=== PATIENT | male | born 1960 | race Caucasian/White ===

== ENCOUNTER → 2016-12-05 | Outpatient (CLI) | payer OTHER | END | disposition home or self-care (01) | LOC: LABPAT 15:37 | PROVIDERS: ATTEND Orthopaedic Surgery | DX: Z01.812 Encounter for preprocedural laboratory examination (principal) | CPT/HCPCS: 87070 ==

== ENCOUNTER 2016-12-25 05:57 | Inpatient (IN) | payer OTHER ==
[2016-12-24 10:01] VITALS: BMI 49.4
[~2016-12-25 05:57] MED LIST: ACETAMINOPHEN TAB 500 MG TAB PO ONE; FAMOTIDINE 20 MG/2 ML VIAL IV PRN; HYDROmorphone 1 MG/ML 1 ML SYRINGE IVP PRN; LIDOCAINE 1% 20 ML VIAL (10MG/ML) FOR IV START INTRADERMA PRN; MELOXICAM 7.5 MG TAB PO ONE; MIDAZOLAM 2 MG/2 ML VIAL IV PRN; ONDANSETRON 4 MG/2 ML VIAL IVP ONE; TRANEXAMIC ACID 1,000 MG in SODIUM CHLORIDE 0.9% 100 ML IVPB ONE; ceFAZolin 3 GM in SODIUM CHLORIDE 0.9% 100 ML IVPB ONE
[2016-12-25 06:49] LABS: Glucose,Whole Blood 259 mg/dL (75-99)
[2016-12-25] MEDS: LACTATED RINGERS 1,000 ML IV SCH ×2 (07:02→23:22)
[2016-12-25] MEDS ORDERED: TRANEXAMIC ACID 1,000 MG/10 ML VIAL ONE (07:12)
[2016-12-25] MEDS ORDERED: LABETALOL 5 MG/ML VIAL MDV ONE (07:12)
[2016-12-25] MEDS ORDERED: SODIUM CHLORIDE 0.9% IRRIG 1,000 ML BTL IRRIGATION ONE (07:12)
[2016-12-25] MEDS ORDERED: diphenhydrAMINE 50 MG/ML 1 ML VIAL ONE (07:12)
[2016-12-25] MEDS ORDERED: hydrALAZINE HCL 20 MG/ML 1 ML VIAL ONE (07:12)
[2016-12-25] MEDS ORDERED: MIDAZOLAM 2 MG/2 ML VIAL ONE (07:12)
[2016-12-25] MEDS ORDERED: KETAMINE 10 MG/ML 20 ML VIAL ONE (07:12)
[2016-12-25] MEDS ORDERED: GLYCOPYRROLATE 0.2 MG/ML 2 ML VIAL ONE (07:12)
[2016-12-25] MEDS ORDERED: HEPARIN SODIUM,PORCINE 10,000 UNIT/ML 1 ML VIAL ONE (07:12)
[2016-12-25] MEDS ORDERED: SODIUM CHLORIDE 0.9% 100 ML BAG ONE (07:12)
[2016-12-25] MEDS ORDERED: ceFAZolin 3,000 MG in SODIUM CHLORIDE 0.9% IRRIGATIO 3,000 ML IRRIGATION ONE (07:45)
[2016-12-25] MEDS: ROPIVACAINE 246.25 MG, EPINEPHrine 0.5 MG, KETOROLAC 30 MG, cloNIDine HCL/PF 80 MCG, WA... MISCELLANE ONE ×10 (07:45→08:50)
[2016-12-25 09:09] LABS: Glucose,Whole Blood 252 mg/dL (75-99)
[2016-12-25] MEDS ORDERED: LACTATED RINGERS 1,000 ML IV ONE (09:15)
--- NOTE | 2016-12-25 09:35 | P.OP ---
Date of Procedure: 12/25/16 Preoperative Diagnosis: Severe osteoarthritis left hip Postoperative Diagnosis: Severe osteoarthritis left hip Procedure(s) Performed: Left total hip arthroplasty with a direct anterior approach Implants: Bernard and nephew Polarstem size 8 Lateral Bernard & Nephew R3, 3 hole acetabular shell, 60 mm Bernard [employer] Nephew reflection 6.5 mm cancellus screw, 20 mm 2 Bernard [employer] Nephew R3, XLPE 20 acetabular liner Bernard & Nephew Oxinium femoral head 36 m, +4 All components were press-fit. The articulation is ceramic on polyethylene. Anesthesia: spinal Surgeon: Steve Mon Chair Spring Assembler #1: Tati Banuelos Chair Spring Assembler #2: Deb Mann Estimated Blood Loss (ml): 800 (330 returned with Cell Saver) Pathology: other (Femoral head) Condition: stable Disposition: PACU Indications for Procedure: After failure of conservative treatment we discussed the surgical and nonsurgical treatment options at length. Patient wishes to proceed with a total hip arthroplasty with a direct anterior approach. Complications specific to this procedure were discussed at length, including but not limited to infection, leg length discrepancy, dislocation, and nerve injury. Patient is aware of all these complications and informed consent was obtained. Also, it was discussed at length prior to the procedure with the patient and his family that due to his large size he is at increased risk of a dislocation after surgery. They are aware of this as well. Operative Findings: The operative findings are consistent with severe osteoarthritis of the left hip. Description of Procedure: Patient was seen and evaluated in the preoperative area, consent was reviewed, and the surgical site was marked with a skin marker. Patient was then brought to the operating room and given prophylactic antibiotics intravenously. 1 g of Tranexamic acid was also given. A spinal anesthetic was administered by the anesthesia department. The patient was then placed on the [place] table with the bony prominences well-padded. The hip area was then prepped and draped in usual sterile fashion. A universal timeout was then performed, which confirmed the patient's name, surgical site, ALLERGIES, and procedure being performed. Next the incision site was located at 1 cm distal and 1 cm lateral to the anterior superior iliac spine. The skin and subcutaneous tissues were sharply incised. Incision was carefully dissected down to the fascia overlying the tensor fascia chey muscle. This fascia was then incised in line with the incision. Next, using blunt finger dissection, the tensor fascia chey muscle was dissected off its investing fascia. The muscle was then carefully retracted laterally with a cobra retractor over the lateral neck of the femur. Next, the circumflex vessels were identified and cauterized using the AquaMantis device. The anterior hip capsule was then exposed. The capsule was then opened and an inverted T fashion. Retention sutures were placed in the inferior arms of the capsule. Cobra retractors were then placed intracapsularly. The proximal femur was then visualized. The femoral neck was then osteotomized appropriate level above the lesser trochanter. Small amount of traction was placed with the [place] table. A small wedge of bone was then removed from the remaining femoral head. Next, using a corkscrew femoral head was easily removed from the acetabulum. On gross visual inspection, the femoral head had complete loss of articular cartilage in multiple periarticular osteophytes. Attention was then turned to the acetabulum. the acetabulum was exposed and any remaining labrum was excised. Sequential reaming of the acetabulum was performed using fluoroscopic guidance. When the appropriate size was reached, a trial was then placed. The position and fit of the trial was checked with fluoroscopy. The trial was then removed. Then, using fluoroscopic guidance, the final implant was impacted at 20 of anteversion and 40 of abduction, and fully seated in the acetabulum. 2 screws were then placed in the acetabulum. Again fluoroscopy was used to check position of the screws. Next, the liner was then impacted, with a 20 elevated liner located in the anterior superior quadrant. Component locking was confirmed. Attention was then directed to the femur. With the aid of the [place] table, the femur was externally rotated to approximately 130, extended, and abducted under the opposite leg. A side hook was then placed under the proximal femur, and the side hook elevator was used to elevate the proximal femur. Retractors were then placed. A capsular release was performed, as well as a release of the conjoined tendon, which afforded excellent visualization of the proximal femur. Next, a box osteotome was used to lateralize the proximal femur. A hand drawer in was then used to locate the femoral canal. Sequential broaching was then performed with appropriate size which afforded excellent fixation in the proximal femur. A trial was then placed with appropriate head and neck, and the hip was gently reduced with the aid of the [place] table. Fluoroscopy was then used to check position of the components, as well as to ensure equal leg lengths. The hip was then gently dislocated and the trials were then removed. Final implants were then impacted and the hip was again reduced. Final fluoroscopic x-rays confirmed that the components were in anatomic position, as well as equal leg lengths. The hip was also taken through range of motion, and found to be stable. The hip was then copiously irrigated with antibiotic solution with pulsatile lavage. The hip was then irrigated with Irrisept solution. The soft tissues were then injected with a ropivacaine solution, which consisted of 246.25 mg of ropivacaine, 0.5 mg of epinephrine, 30 mg of Toradol, 80 g of clonidine, and 48.45 mL of sterile water, for a total of 100 mL of fluid injected. A second dose of 1 g of Tranexamic acid was also given. the fascia was then closed with 2-0 strata fix suture. The subcutaneous tissue was closed with 3-0 Vicryl. The subcuticular tissue was closed with 3-0 strata fix suture. The skin was then closed with Dermabond tape. The patient was then transferred to the recovery room in stable condition. The educational assistant teacher PETER Naqvi was required due to the complexity of surgery , and the need for skilled surgical assistant certified for positioning, draping, exposure , retraction, and closure of the wound.
[2016-12-25] MEDS ORDERED: HYDROmorphone 1 MG/ML 1 ML SYRINGE IVP PRN ×3 (10:09)
[2016-12-25] MEDS ORDERED: HYDROcodone/APAP 7.5-325MG 1 EACH TAB PO PRN (10:09)
[2016-12-25] MEDS ORDERED: MAGNESIUM HYDROXIDE 2,400 MG/10 ML CUP PO PRN (10:09)
[2016-12-25] MEDS ORDERED: DIAZEPAM 5 MG TAB PO PRN ×2 (10:09)
[2016-12-25] MEDS ORDERED: NALOXONE 0.4 MG/ML 1 ML VIAL IV PRN (10:09)
[2016-12-25] MEDS ORDERED: ONDANSETRON 4 MG/2 ML VIAL IVP PRN (10:09)
[2016-12-25 10:22] LABS: Glucose,Whole Blood 247 mg/dL (75-99)
--- NOTE | 2016-12-25 10:58 | XR ---
Limited left hip HISTORY: Postop hip arthroplasty single frontal view of the left hip Patient is status post left hip arthroplasty. There is anatomic alignment in this single view. Lucenc y in the soft tissues compatible with postop state. IMPRESSION: Orthopedic follow-up.
[2016-12-25 12:01] LABS: Glucose,Whole Blood 250 mg/dL (75-99)
--- NOTE | 2016-12-25 13:07 | XR ---
Left hip HISTORY: Hip arthroplasty 3 intraoperative C-arm images document the procedure.
--- NOTE | 2016-12-25 14:15 | FL ---
Fluoroscopy HISTORY: Hip replacement 1 minute 46 seconds fluoroscopy time supplied to the referring clinician. 3 intraoperative C-arm im ages document the procedure. See dictated report from orthopedic surgery.
[2016-12-25] MEDS: HYDROcodone/APAP 7.5-325MG 1 EACH TAB PO PRN ×2 (14:52→21:04)
[2016-12-25] MEDS: hydrOXYzine PAMOATE 25 MG CAP PO PRN ×2 (14:52→21:04)
[2016-12-25] MEDS: ceFAZolin 2 GM in SODIUM CHLORIDE 0.9% 100 ML IVPB SCH (16:19)
[2016-12-25 16:48] LABS: Glucose,Whole Blood 252 mg/dL (75-99)
[2016-12-25] MEDS: INSULIN LISPRO (humaLOG) 300 UNIT/3 ML VIAL SQ SCH ×2 (17:36→21:09)
[2016-12-25 20:42] LABS: Glucose,Whole Blood 288 mg/dL (75-99)
[2016-12-25] MEDS: SENNOSIDES-DOCUSATE SODIUM 1 EACH TAB PO SCH (21:04)
[2016-12-25] MEDS: SODIUM CHLORIDE 0.9% 1,000 ML IV SCH ×2 (21:05→21:11)
[2016-12-25] MEDS: ASPIRIN 325 MG TAB PO SCH (21:29)
[2016-12-26] MEDS: ceFAZolin 2 GM in SODIUM CHLORIDE 0.9% 100 ML IVPB SCH ×3 (00:14→23:50)
[2016-12-26] MEDS: hydrOXYzine PAMOATE 25 MG CAP PO PRN (03:11)
[2016-12-26] MEDS: HYDROcodone/APAP 7.5-325MG 1 EACH TAB PO PRN ×2 (03:11→13:50)
[2016-12-26] MEDS ORDERED: LORazepam 0.5 MG TAB PO PRN (07:21)
[2016-12-26] MEDS ORDERED: QUEtiapine 50 MG TAB PO PRN (07:21)
[2016-12-26 07:57] LABS: Glucose,Whole Blood 271 mg/dL (75-99)
[2016-12-26 08:11] LABS: Basophils % (A) 0 %; CH 29.7; CHCM 34.5; Eosinophils # (A) 0.1 k/uL (0-0.7); Eosinophils % (A) 1 %; HCT 36.6 % (39.0-53.0); HDW 2.88; Luc # (Auto) 0.16; Luc % (Auto) 2; Lymphocytes # (A) 0.9 k/uL (1.0-4.8); Lymphocytes % (A) 13 %; MCH 30.2 pg (25.0-35.0); MCHC 34.9 g/dL (31.0-37.0); MCV 86.5 fL (80.0-100.0); Mean Platelet Volume 7.2; Monocytes # (A) 0.7 k/uL (0-1.0); Monocytes % (A) 10 %; Neutrophils # (A) 5.3 k/uL (1.3-7.7); Neutrophils % (A) 74 %; RBC 4.23 m/uL (4.30-5.90); RDW 12.8 % (11.5-15.5); WBC 7.2 k/uL (3.8-10.6); WBC (Perox) 7.58
[2016-12-26 08:15] LABS: HGB 12.8 gm/dL (13.0-17.5)
[2016-12-26] MEDS: INSULIN LISPRO (humaLOG) 300 UNIT/3 ML VIAL SQ SCH ×4 (08:21→21:46)
[2016-12-26] MEDS: hydrALAZINE HCL 50 MG TAB PO SCH ×3 (08:24→21:15)
[2016-12-26] MEDS: FLUoxetine HCL 20 MG CAP PO SCH (08:24)
[2016-12-26] MEDS: TAMSULOSIN 0.4 MG CAP.ER.24H PO SCH (08:24)
[2016-12-26] MEDS: METOPROLOL TARTRATE 50 MG TAB PO SCH ×2 (08:25→20:37)
[2016-12-26] MEDS: GABAPENTIN 300 MG CAP PO SCH ×3 (08:25→21:15)
[2016-12-26] MEDS: ASPIRIN 325 MG TAB PO SCH ×2 (08:25→20:37)
[2016-12-26] MEDS: glipiZIDE 5 MG TAB PO SCH ×2 (08:26→15:47)
[2016-12-26] MEDS: cloNIDine HCL 0.1 MG TAB PO SCH ×3 (08:26→21:15)
[2016-12-26] MEDS: METHOCARBAMOL 500 MG TAB PO SCH ×4 (08:26→21:16)
[2016-12-26] MEDS: metFORMIN 500 MG TAB PO SCH ×2 (08:27→15:47)
[2016-12-26] MEDS: LOSARTAN 50 MG TAB PO SCH (08:27)
[2016-12-26] MEDS: HYDROCHLOROTHIAZIDE 50 MG TAB PO SCH (08:28)
[2016-12-26] MEDS: MELOXICAM 7.5 MG TAB PO SCH (08:28)
[2016-12-26] MEDS: MODAFINIL 200 MG TAB PO SCH (08:29)
[2016-12-26] MEDS ORDERED: INDOMETHACIN 25 MG CAP PO SCH (09:00)
--- NOTE | 2016-12-26 09:03 | P.PN ---
Subjective Principal diagnosis: Status post left total hip arthroplasty This is a pleasant 86-year-old gentleman who is status post left total hip arthroplasty. He seen and evaluated at bedside this point with Dr. Steve Mon. He states that he's been up walking with physical therapy. His pain is under fair control. He did have low-grade fever this morning and T-max of 102.4 at 7 AM. He has no additional complaints at this time. Objective - Vital Signs Vital signs: Vital Signs Temp 102.4 F H 12/26/16 07:00 Pulse 85 12/26/16 07:00 Resp 16 12/26/16 07:00 BP 198/95 12/26/16 07:00 Pulse Ox 93 L 12/26/16 07:00 Intake & Output 12/25/16 12/26/16 12/26/16 18:59 06:59 18:59 Intake Total 1901 180 Output Total 1700 250 Balance 201 -250 180 Weight 174.633 kg Intake: IV 1501 Oral 400 180 Output: Urine 900 250 Estimated Blood Loss 800 Other: Voiding Method Urinal - Exam The patient does not appear in acute distress. Alert and orientated 3. There is some bloody saturation on the dressing. This was changed this morning. Additional active drainage. There is mild ecchymosis and soft tissue swelling about the left hip. Thigh is soft. Calf is soft and nontender. Good foot and ankle motion without difficulty. Sensation and circulatory status is intact. - Labs CBC & Chem 7: 12/26/16 06:59 Labs: Abnormal Lab Results - Last 24 Hours (Table) 12/25/16 12/25/16 12/25/16 Range/Units 08:56 10:19 11:45 RBC (4.30-5.90) m/uL Hgb (13.0-17.5) gm/dL Hct (39.0-53.0) % Lymphocytes # (1.0-4.8) k/uL POC Glucose (mg/dL) 252 H 247 H 250 H (75-99) mg/dL 12/25/16 12/25/16 12/26/16 Range/Units 16:46 20:40 06:59 RBC 4.23 L (4.30-5.90) m/uL Hgb 12.8 L D (13.0-17.5) gm/dL Hct 36.6 L (39.0-53.0) % Lymphocytes # 0.9 L (1.0-4.8) k/uL POC Glucose (mg/dL) 252 H 288 H (75-99) mg/dL 12/26/16 Range/Units 07:53 RBC (4.30-5.90) m/uL Hgb (13.0-17.5) gm/dL Hct (39.0-53.0) % Lymphocytes # (1.0-4.8) k/uL POC Glucose (mg/dL) 271 H (75-99) mg/dL Assessment and Plan (1) Status post left hip replacement Status: Acute (2) Postoperative fever Status: Acute (3) Primary osteoarthritis of left hip Status: Acute Plan: The patient would like to be discharged home today. However he has had low- grade fevers and a T-max of 102.4. I discussed with the patient that we would like to hold his discharge to monitor him over the next 24 hours. Continue with pain control. Physical therapy today. We'll follow patient closely
[2016-12-26 11:31] LABS: Glucose,Whole Blood 278 mg/dL (75-99)
[2016-12-26 13:25] LABS: Hemoglobin A1C 9.1 % (4.2-6.1)
--- NOTE | 2016-12-26 15:09 | CONS ---
DATE OF CONSULTATION: 12/26/2016 REASON FOR CONSULTATION: Medical management requested by Dr. Mon. CONSULTATION: This is a very pleasant 56-year-old patient of Dr. Mcintyre, chronic stable medical conditions include congestive heart failure, diabetes, hypertension, hyperlipidemia, osteoarthritis of the back, BPH, sleep apnea, uses CPAP machine, herniated disc in the lower back, anxiety, depression. The patient has undergone a left total hip arthroplasty. Some pain is present. No nausea, vomiting, or chest pain. Patient did tolerate his breakfast, did work a bit with physical therapy. is at bedside. Denies any cardiac history. REVIEW OF SYSTEMS: CONSTITUTIONAL: None. HEENT: None. RESPIRATORY: None. CARDIOVASCULAR: None. GASTROINTESTINAL: None. GENITOURINARY: None. MUSCULOSKELETAL: Left hip in a dressing. DERMATOLOGICAL: None. HEMATOLOGICAL: None. LYMPHATIC: None. PSYCHIATRY: A little bit anxious. NEUROLOGICAL: None. Past history of CHF, diabetes, hypertension, hyperlipidemia, osteoarthritis of the back, BPH, sleep apnea, herniated disc in the lower back, anxiety, depression. PAST SURGICAL HISTORY: Nasal surgery. SOCIAL HISTORY: Never smoked. Alcohol occasionally. He used to work in a machine shop, lives with his , now applying for disability. Family history of cancer, type unknown. HOME MEDICATIONS: Glucophage 1000 mg p.o. b.i.d., hydralazine 100 mg p.o. t.i.d., Glucotrol XL 10 mg p.o. daily, Catapres 0.3 mg t.i.d., Flomax 0.4 mg p.o. daily, Seroquel 50 mg p.o. q.h.s. p.r.n., Provigil 200 mg p.o. daily, Lopressor 100 mg p.o. b.i.d., Robaxin 500 mg p.o. q.i.d., Mevacor 40 mg q.h.s., Cozaar 100 mg p.o. daily, Ativan 0.5 mg p.o. daily p.r.n., Indocin 50 mg p.o. t.i.d., hydrochlorothiazide 50 mg p.o. daily, [place] 7.5 one tablet p.o. t.i.d. p.r.n., Neurontin 600 mg p.o. t.i.d., Prozac 60 mg p.o. daily. ALLERGIES: None. On examination, temperature 102.4, pulse 87, respiration 16, blood pressure 198/95, pulse ox 93% on BiPAP, before that temperature 99.1. GENERAL APPEARANCE: Well built, BMI of 49.4. Sitting up on a chair, awake. EYES: Pupils equal. Conjunctivae normal. HEENT: Oral cavity normal. NECK: JVD not raised. Mass not palpable. RESPIRATORY: Slight decreased breath sounds. CARDIOVASCULAR: First and second sounds normal. No edema. ABDOMEN: Soft, nontender. Liver and spleen not palpable. LYMPHATIC: No lymph nodes palpable in neck or axillae. PSYCHIATRY: Alert and oriented x3. Mood and affect is normal. NEUROLOGICAL: Pupils equal. Cranial nerves grossly intact. Power and sensation grossly intact. EXTREMITIES: Right knee in a dressing. INVESTIGATIONS: White count 7.2, hemoglobin 12.8. Accu-Cheks are noted. ASSESSMENT: 1. Left total hip arthroplasty. 2. Chronic congestive heart failure, ejection fraction not known. 3. Diabetes mellitus type 2, on oral hypoglycemics, hyperlipidemia. 4. Essential hypertension. 5. Primary osteoarthritis of multiple joints including the lower back. 6. Benign prostatic hypertrophy. 7. Obstructive sleep apnea, uses CPAP. 8. Anxiety, depression, not otherwise specified. 9. Morbid obesity, body mass index 49.4. 10. Postoperative fever, could be reactive, over the next 24 hours will keep a close eye. PLAN: Patient's home medications resumed. Accu-Cheks will be followed. For DVT prophylaxis, patient is on aspirin [address] Mon. Care was discussed with the patient and . Questions were answered. Thank you, Dr. Mon.
[2016-12-26] MEDS ORDERED: HYDROcodone/APAP 10-325MG 1 EACH TAB PO PRN (16:35)
[2016-12-26] MEDS: SODIUM CHLORIDE 0.9% 1,000 ML IV SCH ×2 (16:39→23:49)
[2016-12-26 16:48] LABS: Glucose,Whole Blood 340 mg/dL (75-99)
[2016-12-26] MEDS: HYDROcodone/APAP 10-325MG 1 EACH TAB PO PRN (17:59)
[2016-12-26 19:23] LABS: Amorphous Sediment,Urine Rare /hpf; Appearance,Urine Cloudy (Clear); Bilirubin,Urine Negative (Negative); Glucose,Urine (UA) 4+ (Negative); Ketones,Urine Negative (Negative); Leukocyte Esterase,Urine Negative (Negative); Mucus,Urine Rare /hpf; Nitrite,Urine Negative (Negative); PH, Urine 5.5 (5.0-8.0); Particle Count 978; Protein,Urine 1+ (Negative); RBC,Urine 4 /hpf (0-5); Specific Gravity,Urine 1.016 (1.001-1.035); Squamous Epithelial Cell,Urine <1 /hpf (0-4); UA Billing (MACRO vs. MICRO) MICRO; Uric Acid Crystals,Urine Few /hpf; Urobilinogen,Urine <2.0 mg/dL (<2.0); WBC,Urine <1 /hpf (0-5)
[2016-12-26] MEDS: SENNOSIDES-DOCUSATE SODIUM 1 EACH TAB PO SCH (20:39)
[2016-12-26] MEDS: ATORVASTATIN 10 MG TAB PO SCH (20:39)
[2016-12-26 21:44] LABS: Glucose,Whole Blood 177 mg/dL (75-99)
[2016-12-26] MEDS: LACTATED RINGERS 1,000 ML IV SCH (23:49)
[2016-12-27] MEDS: HYDROcodone/APAP 10-325MG 1 EACH TAB PO PRN ×3 (03:56→16:24)
[2016-12-27 07:12] LABS: Glucose,Whole Blood 143 mg/dL (75-99)
[2016-12-27 07:25] LABS: Basophils % (A) 1 %; CH 30.4; CHCM 35.1; Eosinophils # (A) 0.1 k/uL (0-0.7); Eosinophils % (A) 1 %; HCT 33.4 % (39.0-53.0); HDW 2.87; HGB 11.4 gm/dL (13.0-17.5); Luc # (Auto) 0.26; Luc % (Auto) 3; Lymphocytes # (A) 1.8 k/uL (1.0-4.8); Lymphocytes % (A) 21 %; MCH 29.6 pg (25.0-35.0); MCHC 34.1 g/dL (31.0-37.0); MCV 86.9 fL (80.0-100.0); Mean Platelet Volume 7.8; Monocytes # (A) 0.9 k/uL (0-1.0); Monocytes % (A) 10 %; Neutrophils # (A) 5.8 k/uL (1.3-7.7); Neutrophils % (A) 65 %; RBC 3.84 m/uL (4.30-5.90); RDW 13.5 % (11.5-15.5); WBC (Perox) 8.86
[2016-12-27] MEDS: METHOCARBAMOL 500 MG TAB PO SCH ×4 (08:00→21:25)
[2016-12-27] MEDS: hydrALAZINE HCL 50 MG TAB PO SCH ×3 (08:00→21:26)
[2016-12-27] MEDS: metFORMIN 500 MG TAB PO SCH ×2 (08:00→16:35)
[2016-12-27] MEDS: LOSARTAN 50 MG TAB PO SCH (08:00)
[2016-12-27] MEDS: GABAPENTIN 300 MG CAP PO SCH ×3 (08:01→21:26)
[2016-12-27] MEDS: FLUoxetine HCL 20 MG CAP PO SCH (08:01)
[2016-12-27] MEDS: ASPIRIN 325 MG TAB PO SCH ×2 (08:01→20:37)
[2016-12-27] MEDS: glipiZIDE 5 MG TAB PO SCH ×2 (08:01→16:34)
[2016-12-27] MEDS: cloNIDine HCL 0.1 MG TAB PO SCH ×3 (08:02→21:26)
[2016-12-27] MEDS: HYDROCHLOROTHIAZIDE 50 MG TAB PO SCH (08:02)
[2016-12-27] MEDS: INSULIN LISPRO (humaLOG) 300 UNIT/3 ML VIAL SQ SCH ×4 (08:04→21:24)
[2016-12-27] MEDS: TAMSULOSIN 0.4 MG CAP.ER.24H PO SCH (08:08)
[2016-12-27] MEDS: METOPROLOL TARTRATE 50 MG TAB PO SCH ×2 (08:08→20:37)
[2016-12-27] MEDS: MELOXICAM 7.5 MG TAB PO SCH (08:09)
--- NOTE | 2016-12-27 08:44 | P.DS ---
Addendum entered and electronically signed by Tati Banuelos PAC 12/28/16 09: 21: The patient's discharge was held yesterday secondary to difficulty with mobilization. After discussion consideration the patient elected to be transferred to subacute rehab upon discharge. He is orthopedically stable for transfer today if cleared medically. The patient will be discharged with Keflex 500 mg 1 by mouth 4 times a day as well. Original Note: Providers Date of admission: 12/25/16 05:57 Expected date of discharge: 12/27/16 Attending physician: Steve Mon Consults: 12/25/16 10:09 Consult Physician Routine Consulting Provider: Malcolm Woodall Consult Reason/Comments: medical management Do you want consulting provider notified?: Yes Primary care physician: Morales Mcintyre - Discharge Diagnosis(es) (1) Osteoarthritis of left hip Current Visit: Yes Status: Acute (2) Status post left hip replacement Current Visit: Yes Status: Acute Hospital Course: This is a 56-year-old male with known history of degenerative arthritis of the left hip. The patient presents for evaluation. After discussion and consideration patient elects to proceed with total hip arthroplasty. The patient is seen preoperatively by Dr. Mcintyre and cleared for surgery. Patient is admitted to [facility] on 12/25/2016 for total hip arthroplasty. The procedure is performed without complication or sequelae. The patient is doing well postoperatively. He did run a fever 102 on the evening of surgery. He has been afebrile for the past 24 hours. Labs and vital signs are stable on day of discharge. On day of discharge patient's hip incision is healing well. There is minimal erythema. There is no drainage noted at this time. There is minimal soft tissue swelling to the hip and thigh. Patient has full foot and ankle motion without difficulty or pain. Neurovascular status to the left lower extremity is intact. Patient is discharged to home in good condition. Please see med rec for accurate list of home medications. Patient Condition at Discharge: Good Plan - Discharge Summary New Discharge Prescriptions: Aspirin 325 mg PO BID #60 tab HYDROcodone/APAP 7.5-325MG [[place] 7.5-325] 1 - 2 tab PO Q6HR PRN #90 tab PRN Reason: Pain Sennosides-Docusate Sodium [Senokot-S] 1 tab PO BID #60 tablet Discharge Medication List FLUoxetine HCL [PROzac] 60 mg PO DAILY 12/24/16 [History] Gabapentin [Neurontin] 600 mg PO TID 12/24/16 [History] HYDROcodone/APAP 7.5-325MG [[place] 7.5-325] 1 tab PO TID PRN 12/24/16 [History] Hydrochlorothiazide 50 mg PO DAILY 12/24/16 [History] Indomethacin [Indocin] 50 mg PO TID 12/24/16 [History] LORazepam [Ativan] 0.5 mg PO DAILY PRN 12/24/16 [History] Losartan Potassium [Cozaar] 100 mg PO DAILY 12/24/16 [History] Lovastatin [Mevacor] 40 mg PO HS 12/24/16 [History] Methocarbamol [Robaxin] 500 mg PO QID 12/24/16 [History] Metoprolol Tartrate [Lopressor] 100 mg PO BID 12/24/16 [History] Modafinil [Provigil] 200 mg PO DAILY 12/24/16 [History] QUEtiapine [SEROquel] 50 mg PO HS PRN 12/24/16 [History] Tamsulosin HCl [Flomax] 0.4 mg PO DAILY 12/24/16 [History] cloNIDine HCL [Catapres] 0.3 mg PO TID 12/24/16 [History] glipiZIDE XL [Glucotrol Xl] 10 mg PO DAILY 12/24/16 [History] hydrALAZINE HCL [Apresoline] 100 mg PO TID 12/24/16 [History] metFORMIN HCL [Glucophage] 1,000 mg PO BID-W/MEALS 12/24/16 [History] Aspirin 325 mg PO BID #60 tab 12/27/16 [Rx] HYDROcodone/APAP 7.5-325MG [[place] 7.5-325] 1 - 2 tab PO Q6HR PRN #90 tab [Rx] Sennosides-Docusate Sodium [Senokot-S] 1 tab PO BID #60 tablet 12/27/16 [Rx] Follow up Appointment(s)/Referral(s): [facility], [NON-STAFF] - 1 Week Steve Mon DO [Doctor of Osteopathic Medicine] - 2 Weeks Activity/Diet/Wound Care/Special Instructions: Hold Indocin while on Aspirin 325mg and consult your Primary care physician on when to restart. May bear weight as tolerated with walker. May shower if no drainage from incision.
[2016-12-27] MEDS: ceFAZolin 2 GM in SODIUM CHLORIDE 0.9% 100 ML IVPB SCH ×2 (09:23→16:15)
[2016-12-27 11:54] LABS: Glucose,Whole Blood 265 mg/dL (75-99)
[2016-12-27] MEDS: MODAFINIL 200 MG TAB PO SCH (12:02)
[2016-12-27 16:36] LABS: Glucose,Whole Blood 194 mg/dL (75-99)
[2016-12-27] MEDS: SODIUM CHLORIDE 0.9% 1,000 ML IV SCH (17:21)
[2016-12-27 20:10] LABS: Glucose,Whole Blood 198 mg/dL (75-99)
[2016-12-27] MEDS: ATORVASTATIN 10 MG TAB PO SCH (20:37)
[2016-12-27] MEDS: SENNOSIDES-DOCUSATE SODIUM 1 EACH TAB PO SCH (21:22)
--- NOTE | 2016-12-27 21:22 | PN ---
DATE OF SERVICE: 12/27/2016 PRESENTING COMPLAINT: Left hip surgery. INTERVAL HISTORY: This is a patient status post left hip surgery, doing well. Pain is better controlled, very slight dizziness. Tolerating a diet. Did work with physical therapy. is at the bedside. Review of systems done for constitutional, cardiovascular, GI, pulmonary; relevant findings as above. Current medications are reviewed. On examination, temperature 98.2, pulse 67, respiratory rate 16, blood pressure 140/51, pulse ox 96%. GENERAL APPEARANCE: Sitting up on chair. Comfortable. EYES: Pupils equal. Conjunctivae normal. NECK: JVD not raised. Mass not palpable. RESPIRATORY: Effort normal. Lungs are clear. CARDIOVASCULAR: First and second sounds normal. ABDOMEN: Soft, nontender. Liver and spleen not palpable. PSYCHIATRY: Alert and oriented x3. Mood and affect normal. INVESTIGATIONS: Accu-Cheks are noted, hemoglobin 11.4. ASSESSMENT: 1. Left total hip arthroplasty. 2. Chronic congestive heart failure with ejection fraction not known. 3. Type 2 diabetes mellitus, on oral hypoglycemic. 4. Hyperlipidemia. 5. Essential hypertension. 6. Primary osteoarthritis of multiple joints including the lower back/lumbar. 7. Benign prostatic hypertrophy. 8. Obstructive sleep apnea, uses CPAP. 9. Anxiety depression, not otherwise specified. 10. Morbid obesity, body mass index 49.4. 11. Postop fever, likely reactive, now completely resolved. No signs of infection. PLAN: Continue current medication and treatment plan. Patient overall doing much better.
[2016-12-28] MEDS ORDERED: HYDROcodone/APAP 10-325MG 1 EACH TAB ONE (02:30)
[2016-12-28] MEDS: SODIUM CHLORIDE 0.9% 1,000 ML IV SCH ×2 (05:49→20:56)
[2016-12-28] MEDS: ceFAZolin 2 GM in SODIUM CHLORIDE 0.9% 100 ML IVPB SCH ×4 (05:49→23:20)
[2016-12-28] MEDS: LACTATED RINGERS 1,000 ML IV SCH ×2 (05:50→23:20)
[2016-12-28 07:12] LABS: Glucose,Whole Blood 180 mg/dL (75-99)
[2016-12-28 07:17] LABS: Basophils % (A) 0 %; CH 30.6; CHCM 35.6; Eosinophils # (A) 0.2 k/uL (0-0.7); Eosinophils % (A) 2 %; HCT 30.6 % (39.0-53.0); HDW 3.03; HGB 11.1 gm/dL (13.0-17.5); Luc # (Auto) 0.27; Luc % (Auto) 3; Lymphocytes # (A) 1.5 k/uL (1.0-4.8); Lymphocytes % (A) 16 %; MCH 31.4 pg (25.0-35.0); MCHC 36.3 g/dL (31.0-37.0); MCV 86.4 fL (80.0-100.0); Monocytes # (A) 0.7 k/uL (0-1.0); Monocytes % (A) 8 %; Neutrophils # (A) 6.4 k/uL (1.3-7.7); Neutrophils % (A) 70 %; RBC 3.54 m/uL (4.30-5.90); RDW 12.8 % (11.5-15.5); WBC 9.1 k/uL (3.8-10.6); WBC (Perox) 9.91
[2016-12-28] MEDS: GABAPENTIN 300 MG CAP PO SCH ×3 (07:42→21:01)
[2016-12-28] MEDS: MELOXICAM 7.5 MG TAB PO SCH (07:42)
[2016-12-28] MEDS: hydrALAZINE HCL 50 MG TAB PO SCH ×3 (07:42→21:02)
[2016-12-28] MEDS: METOPROLOL TARTRATE 50 MG TAB PO SCH ×2 (07:42→21:01)
[2016-12-28] MEDS: METHOCARBAMOL 500 MG TAB PO SCH ×4 (07:43→21:02)
[2016-12-28] MEDS: TAMSULOSIN 0.4 MG CAP.ER.24H PO SCH (07:43)
[2016-12-28] MEDS: glipiZIDE 5 MG TAB PO SCH ×2 (07:43→16:40)
[2016-12-28] MEDS: LOSARTAN 50 MG TAB PO SCH (07:44)
[2016-12-28] MEDS: metFORMIN 500 MG TAB PO SCH ×2 (07:44→16:40)
[2016-12-28] MEDS: ASPIRIN 325 MG TAB PO SCH ×2 (07:44→21:00)
[2016-12-28] MEDS: HYDROCHLOROTHIAZIDE 50 MG TAB PO SCH (07:44)
[2016-12-28] MEDS: FLUoxetine HCL 20 MG CAP PO SCH (07:44)
[2016-12-28] MEDS: cloNIDine HCL 0.1 MG TAB PO SCH ×3 (07:44→21:01)
[2016-12-28] MEDS: HYDROcodone/APAP 10-325MG 1 EACH TAB PO PRN ×3 (07:45→23:19)
[2016-12-28] MEDS: MODAFINIL 200 MG TAB PO SCH (07:45)
[2016-12-28] MEDS: INSULIN LISPRO (humaLOG) 300 UNIT/3 ML VIAL SQ SCH ×4 (07:46→21:06)
--- NOTE | 2016-12-28 09:21 | P.PN ---
Subjective Principal diagnosis: Status post left total hip arthroplasty This is a pleasant 86-year-old gentleman who is status post left total hip arthroplasty. He is seen and evaluated at bedside. His pain is under fair control. He was requiring assistance with ambulation yesterday from staff. He denies abdominal pain. Positive flatus. He denies shortness of breath. He has no additional complaints at this time. Objective - Vital Signs Vital signs: Vital Signs Temp 98.5 F 12/28/16 07:00 Pulse 69 12/28/16 07:00 Resp 18 12/28/16 07:00 BP 133/76 12/28/16 07:00 Pulse Ox 97 12/28/16 07:00 Intake & Output 12/27/16 12/28/16 12/28/16 18:59 06:59 18:59 Output Total 600 775 Balance -600 -775 Weight 174.633 kg Output: Urine 600 775 Other: Voiding Method Urinal # Voids 2 - Exam The patient does not appear in acute distress. Alert and orientated 3. There is some bloody saturation on the dressing. This was changed this morning. No additional active drainage. No erythema. There is mild ecchymosis and soft tissue swelling about the left hip. Thigh is soft. Calf is soft and nontender. Good foot and ankle motion without difficulty. Sensation and circulatory status is intact. - Labs CBC & Chem 7: 12/28/16 06:45 Labs: Abnormal Lab Results - Last 24 Hours (Table) 12/27/16 12/27/16 12/27/16 Range/Units 11:51 16:30 20:07 RBC (4.30-5.90) m/uL Hgb (13.0-17.5) gm/dL Hct (39.0-53.0) % POC Glucose (mg/dL) 265 H 194 H 198 H (75-99) mg/dL 12/28/16 12/28/16 Range/Units 06:45 07:11 RBC 3.54 L (4.30-5.90) m/uL Hgb 11.1 L (13.0-17.5) gm/dL Hct 30.6 L (39.0-53.0) % POC Glucose (mg/dL) 180 H (75-99) mg/dL Microbiology - Last 24 Hours (Table) 12/26/16 15:00 Urine Culture - Final Urine,Clean Catch 12/26/16 14:03 Blood Culture - Preliminary Blood No Growth after 24 hours 12/26/16 14:14 Blood Culture - Preliminary Blood No Growth after 24 hours Assessment and Plan (1) Status post left hip replacement Status: Acute (2) Postoperative fever Status: Acute (3) Primary osteoarthritis of left hip Status: Acute Plan: The patient would like to be discharged home today. The patient is required increased assistance with ambulation. Subacute rehab was discussed for patient safety to improve his mobilization. Patient agrees. He wishes to be transferred to [facility]. The patient be transferred today if he is medically cleared.
[2016-12-28 11:58] LABS: Glucose,Whole Blood 161 mg/dL (75-99)
[2016-12-28 16:19] LABS: Glucose,Whole Blood 244 mg/dL (75-99)
[2016-12-28 19:53] LABS: Glucose,Whole Blood 167 mg/dL (75-99)
[2016-12-28] MEDS: ATORVASTATIN 10 MG TAB PO SCH (21:01)
[2016-12-28] MEDS: SENNOSIDES-DOCUSATE SODIUM 1 EACH TAB PO SCH (21:03)
--- NOTE | 2016-12-28 23:02 | PN ---
DATE OF SERVICE: 12/28/2016 PRESENTING COMPLAINT: Left hip surgery. INTERVAL HISTORY: This is a patient status post left hip surgery, doing well. No fever. No chills. Orthopedics put the patient on antibiotics, the patient did have a fever. REVIEW OF SYSTEMS: Done for constitutional, cardiovascular, GI, pulmonary; relevant findings as above. Current medications include Keflex. On examination, temperature 98.5, pulse 59, respiratory rate 18, blood pressure 132/76, pulse ox 97% on room air. GENERAL APPEARANCE: Sitting up, comfortable. EYES: Pupils equal. Conjunctivae normal. NECK: JVD not raised. Mass not palpable. RESPIRATORY: Effort normal. Lungs are clear. CARDIOVASCULAR: First and second sounds normal. No edema. ABDOMEN: Soft, nontender. Liver and spleen not palpable. PSYCHIATRY: Alert and oriented x3. Mood and affect normal. INVESTIGATIONS: White count 9.1, hemoglobin 11.1. Accu-Cheks are noted. Blood cultures negative have been negative until now. ASSESSMENT: 1. Left total hip arthroplasty. 2. Chronic congestive heart failure with ejection fraction not known. 3. Diabetes mellitus type 2, on oral hypoglycemic. 4. Hyperlipidemia. 5. Essential hypertension. 6. Primary osteoarthritis multiple joints including lower lumbar area. 7. Benign prostatic hypertrophy. 8. Obstructive sleep apnea uses CPAP. 9. Morbid obesity, body mass index 49.4. 10. ( ) could be reactive. Patient to be on the safer side was on Keflex. PLAN: Continue current medication and treatment plan. Care was discussed with the patient.
[2016-12-29 03:36] VITALS: RESP 16
[2016-12-29 06:59] LABS: Glucose,Whole Blood 184 mg/dL (75-99)
[2016-12-29 07:37] VITALS: BP 168/79; PULSE 67; TEMP 98.9
[2016-12-29] MEDS: metFORMIN 500 MG TAB PO SCH (07:37)
[2016-12-29] MEDS: glipiZIDE 5 MG TAB PO SCH (07:37)
[2016-12-29] MEDS: ASPIRIN 325 MG TAB PO SCH (07:38)
[2016-12-29] MEDS: cloNIDine HCL 0.1 MG TAB PO SCH (07:38)
[2016-12-29] MEDS: SODIUM CHLORIDE 0.9% 1,000 ML IV SCH (07:38)
[2016-12-29] MEDS: GABAPENTIN 300 MG CAP PO SCH (07:40)
[2016-12-29] MEDS: hydrALAZINE HCL 50 MG TAB PO SCH (07:40)
[2016-12-29] MEDS: FLUoxetine HCL 20 MG CAP PO SCH (07:40)
[2016-12-29] MEDS: LOSARTAN 50 MG TAB PO SCH (07:41)
[2016-12-29] MEDS: METOPROLOL TARTRATE 50 MG TAB PO SCH (07:42)
[2016-12-29] MEDS: MELOXICAM 7.5 MG TAB PO SCH (07:42)
[2016-12-29] MEDS: HYDROCHLOROTHIAZIDE 50 MG TAB PO SCH (07:42)
[2016-12-29] MEDS: METHOCARBAMOL 500 MG TAB PO SCH (07:42)
[2016-12-29] MEDS: TAMSULOSIN 0.4 MG CAP.ER.24H PO SCH (07:43)
[2016-12-29] MEDS: INSULIN LISPRO (humaLOG) 300 UNIT/3 ML VIAL SQ SCH ×2 (07:46→12:33)
[2016-12-29] MEDS: MODAFINIL 200 MG TAB PO SCH (09:42)
--- NOTE | 2016-12-29 10:09 | P.PN ---
Progress Note - Text Patient is a very pleasant 56-year-old male who is seen and examined at the bedside for follow-up evaluation after receiving undergoing a left total hip arthroplasty performed by Dr. Steve Mon on 12/25/2016. Postoperatively he was progressing quite slowly. Over the past couple days, he has had significant improvement. He's been able to ambulate better with assistance of a walker. He has less pain at the left hip. He is able to get out of bed with much less assistance. At this time he feels he is improving is ready for discharge home versus rehabilitation. He is eating and voiding without significant difficulty. He has no new complaints this morning. He is no longer experiencing postoperative fevers. Patient states he is eager to return home as his father has and services are scheduled for Saturday, 2016. Physical Exam Total Hip Arthroplasty: Status post surgical day number 4 Patient is examined lying in bed and while ambulating the hallways Patient is awake and alert, and oriented 3 Vital signs stable Good chest excursion with deep inspiration and expiration Abdomen soft nontender No signs or symptoms of DVT; no calf pain Dressing of the hip is dry and intact with some dried drainage; no erythema, purulence, or signs of infection at the incision site Some ecchymosis and soft tissue swelling over the incision site Full range of motion of ankles bilaterally Dorsiflexion, plantarflexion, and extensor hallucis longus positive sustained bilaterally Neurovascularly intact bilateral lower extremities Capillary refill less than 2 seconds bilateral lower extremities Assessment: Status post left total hip arthroplasty Left hip pain Plan: 1. Patient to continue to be weight-bear as tolerated on the left lower extremity; patient may work with physical therapy to increase mobility and ambulation 2. Continue pain control; prescription for [place] 7.5 mg/325 mg 1 tab every 8 hours for pain dispense 45 will be given at the time of discharge 3. Medicine to continue following the patient for their other medical issues 5. Continue with with anticoagulation therapy; patient will continue taking aspirin 325 mg twice a day as prescribed 5. After further discussion with Betty Banuelos PA-C and Dr. Steve Mon, from an orthopedic standpoint, patient is now clear for discharge home; we will plan for discharge home today, 12/29/2016 7. Patient can follow-up with Dr. Steve Mon at [facility] in 2 weeks following discharge
[2016-12-29 12:19] LABS: Glucose,Whole Blood 197 mg/dL (75-99)
[2016-12-29] MEDS: ceFAZolin 2 GM in SODIUM CHLORIDE 0.9% 100 ML IVPB SCH (12:32)
== END 2016-12-29 13:30 | disposition home health service (06) | DRG 470 ==
LOC: 2ORMAIN 05:57 → 3SUR 10:24
PROVIDERS: ADMIT Orthopaedic Surgery; ATTEND Orthopaedic Surgery
PROC: 0SRB04A Replacement of Left Hip Joint with Ceramic on Polyethylene Synthetic Substitute, Uncemented, Open Approach (ICD-10-PCS; principal; 2016-12-25 09:10)
DX: M16.12 Unilateral primary osteoarthritis, left hip (principal); I11.0 Hypertensive heart disease with heart failure; Z68.42 Body mass index [BMI] 45.0-49.9, adult; I50.9 Heart failure, unspecified; E66.01 Morbid (severe) obesity due to excess calories; R50.82 Postprocedural fever; E11.9 Type 2 diabetes mellitus without complications; E78.5 Hyperlipidemia, unspecified; M47.9 Spondylosis, unspecified; G47.33 Obstructive sleep apnea (adult) (pediatric); F41.8 Other specified anxiety disorders; N40.0 Benign prostatic hyperplasia without lower urinary tract symptoms; M19.91 Primary osteoarthritis, unspecified site; Z79.899 Other long term (current) drug therapy; Z79.84 Long term (current) use of oral hypoglycemic drugs
CPT/HCPCS: 73501; 73502; 81001; 83036; 85025; 86850; 86891; 86900; 86901; 87040; 87086; 88300

== ENCOUNTER 2017-12-20 14:06 | Inpatient (IN) | payer MEDICARE, OTHER ==
[2017-12-20] MEDS ORDERED: SODIUM CHLORIDE 0.9% 1,000 ML IV STA (14:25)
[2017-12-20] MEDS ORDERED: ONDANSETRON 4 MG/2 ML VIAL IVP STA (14:25)
--- NOTE | 2017-12-20 14:38 | ED ---
General Adult HPI - General Stated complaint: Kidney Stone Time Seen by Provider: 12/20/17 14:18 Source: patient, EMS, RN notes reviewed - History of Present Illness Initial comments: With complaint of kidney stone on the left side. The patient reports that he had left flank pain starting 5 days ago. This morning he had nausea vomiting he went to [facility]. A 6 moment a kidney stone was diagnosed by CAT scan on the left side. They're unable to manage his pain there. The case discussed with on-call urologist Dr. Perez. He wanted the patient transferred here for evaluation and possible admission for control of pain. Patient denies any fever at this time. She was seen initially at [facility] 5 days ago and then returned today because pain increased. Notes from the emergency room shows the patient's BUN today was 24 and elevate creatinine 2.48. Patient had a CAT scan of the abdomen was obtained showed a 6 mm stone proximal at the L4 region with no movement and hydronephrosis. Report from [facility] also mentions nephric stranding. - Related Data Home Medications Medication Instructions Recorded Confirmed Hydrochlorothiazide 50 mg PO DAILY 12/24/16 12/20/17 LORazepam [Ativan] 0.5 mg PO DAILY PRN 12/24/16 12/20/17 Losartan Potassium [Cozaar] 100 mg PO DAILY 12/24/16 12/20/17 Lovastatin [Mevacor] 40 mg PO HS 12/24/16 12/20/17 Methocarbamol [Robaxin] 500 mg PO QID 12/24/16 12/20/17 Metoprolol Tartrate [Lopressor] 100 mg PO BID 12/24/16 12/20/17 Modafinil [Provigil] 200 mg PO DAILY 12/24/16 12/20/17 QUEtiapine [SEROquel] 50 mg PO HS PRN 12/24/16 12/20/17 cloNIDine HCL [Catapres] 0.3 mg PO TID 12/24/16 12/20/17 glipiZIDE XL [Glucotrol XL] 10 mg PO BID 12/24/16 12/20/17 hydrALAZINE HCL [Apresoline] 100 mg PO TID 12/24/16 12/20/17 metFORMIN HCL [Glucophage] 1,000 mg PO BID-W/MEALS 12/24/16 12/20/17 Aspirin EC [Ecotrin Low Dose] 81 mg PO DAILY 12/20/17 12/20/17 Gabapentin 800 mg PO TID 12/20/17 12/20/17 HYDROcodone/APAP 7.5-325MG [[place] 1 tab PO Q8HR PRN 12/20/17 12/20/17 7.5-325] Indomethacin [Indocin] 50 mg PO TID 12/20/17 12/20/17 Levocetirizine Dihydrochloride 5 mg PO HS 12/20/17 12/20/17 [Xyzal] Previous Rx's Medication Instructions Recorded Tamsulosin [Flomax] 0.4 mg PO DAILY cap.er.24h 12/28/16 Allergies Allergy/AdvReac Type Severity Reaction Status Date / Time No Known Allergies Allergy Verified 12/20/17 14:20 Review of Systems ROS Statement: Those systems with pertinent positive or pertinent negative responses have been documented in the HPI. Review of systems no headache or visual acuity changes no chest pain or shortness of breath. He was nauseated and vomiting this morning because of severe left flank pain radiating down her left groin. He was diagnosed with a kidney stone at [facility]. No other complaints. All systems were reviewed. Past medical problems; patient reports non-insulin diabetes mellitus, hyperlipidemia, hypertension previous musculoskeletal disorder, osteoarthritis. Medical history tonsils and adenoids and total left hip. Prostatic hypertrophy. Sleep apnea using CPAP. Chronic lower extremity edema. History of CHF. Family history mother had breast cancer father had pancreatic cancer. Patient denies any ALLERGIES. Denies smoking. Drinks alcohol rarely socially. ROS Other: All systems not noted in ROS Statement are negative. Past Medical History Past Medical History: Heart Failure, Diabetes Mellitus, Hyperlipidemia, Hypertension, Musculoskeletal Disorder, Osteoarthritis (OA), Prostate Disorder, Sleep Apnea/CPAP/BIPAP Additional Past Medical History / Comment(s): EDEMA LOWER EXTREMITIES., USES BIPAP MACHINE. , HERNIATED DISCS WITH BACK PAIN. , BPH. History of Any Multi-Drug Resistant Organisms: None Reported Additional Past Surgical History / Comment(s): NASAL SURGERY Past Anesthesia/Blood Transfusion Reactions: No Reported Reaction Past Psychological History: Anxiety, Depression Smoking Status: Never smoker Past Alcohol Use History: Occasional Past Drug Use History: None Reported - Past Family History Mother Family Medical History: Cancer Father Family Medical History: Cancer General Exam - General Exam Comments Initial Comments: General: The patient is awake and alert, here because of kidney stone from another emergency room. Patient received morphine just prior to arrival. Currently comfortable. History finds the patient was diagnosed with a 6 mm kidney stone left ureter. Blood pressure elevated 220/110. Heart rates 79. The patient will receive IV hydralazine. He states he did not take his antihypertensive medications today. Eye: Pupils are equal, round and reactive to light, extra-ocular movements are intact ; there is normal conjunctiva bilaterally. No signs of icterus. Ears, nose, mouth and throat: There are moist mucous membranes and no oral lesions. Neck: The neck is supple, there is no tenderness . Cardiovascular: There is a regular rate and rhythm. No murmur, rub or gallop is appreciated. Respiratory: Lungs are clear to auscultation, respirations are non-labored, breath sounds are equal. No wheezes, stridor, rales, or rhonchi. Gastrointestinal: Soft, non-distended, non-tender abdomen without masses or organomegaly noted. There is no rebound or guarding present. No CVA tenderness. Bowel sounds are unremarkable. Currently pain-free Back: No complaint of back pain at this time. Musculoskeletal: Normal ROM, no tenderness, chronic peripheral edema. There is no calf tenderness or swelling. Sensation intact. Pulses equal bilaterally 2+. Neurological: No numbness no tingling, no complaint of any weakness. No neuro deficits. Skin: Skin is warm and dry and no rashes or lesions are noted. Course Vital Signs 12/20/17 12/20/17 14:39 14:55 Temperature 100.8 F H Pulse Rate 75 82 Respiratory 18 18 Rate Blood Pressure 232/116 237/119 O2 Sat by Pulse 97 95 Oximetry Medical Decision Making - Medical Decision Making Labs were reviewed from [facility]. The significant ones being the white count of 8, creatinine 2.24 BUN 24. Creatinine is elevated over previous visit to [facility]. CAT scan showed no significant movement of the 6 mm stone at approximately L4 level. While in emergency room the patient received hydralazine because of high blood pressure. He did not take his blood pressure pills today. I discussed the case with Dr. Perez, patient be admitted to his service. Dr. Perez wants patient will be started on Rocephin, with general medical consult. I discussed the case with Dr. Woodall. He'll manage the patient on the floor. Patient also received Tylenol for fever. Disposition Clinical Impression: Ureterolithiasis, Acute kidney injury Disposition: ADMITTED IP TO THIS HOSP Condition: Serious Referrals: Morales Mcintyre MD [Primary Care Provider] - 1-2 days
[2017-12-20] MEDS ORDERED: hydrALAZINE HCL 20 MG/ML 1 ML VIAL IVP STA (14:45)
[2017-12-20] MEDS ORDERED: cefTRIAXone 1,000 MG VIAL (IM USE) IM STA (15:20)
[2017-12-20] MEDS ORDERED: ACETAMINOPHEN TAB 500 MG TAB PO STA (15:22)
[2017-12-20] MEDS ORDERED: NALOXONE 0.4 MG/ML 1 ML VIAL IV PRN (15:23)
[2017-12-20] MEDS ORDERED: ONDANSETRON 4 MG/2 ML VIAL IVP PRN (15:23)
--- NOTE | 2017-12-20 15:48 | P.GSHP ---
History of Present Illness H&P Date: 12/20/17 The patient is a 57-year-old gentleman known to me for lower urinary tract issues who presented to [facility] today with severe ureteral colic. He actually began with problems last week. On Saturday he ended up in the emergency room and was identified to have a 6 mm proximal ureteral stone on the left side. His pain was under control and he is discharged home. He is supposed to be seen in the office today in follow-up for his bladder issues as well as the new kidney stone issue however he ended up in the emergency room due to colic. I was contacted via the [facility] emergency room physician who stated that he had still had the 6 mm ureteral stone in his colic persisted. He is transferred to [facility] reassessed. A low- grade temperature and was hypertensive. He has not taken his blood pressure medicine today. Because of these issues he was admitted to the hospital for treatment of the colic and IV antibiotics and an antihypertensive treatment. The patient's first stone. He feels little better with narcotics. He is no family history of stones. The patient is morbidly obese at 395 pounds. He has diabetes hypertension heart failure . He is admitted for IV hydration problem narcotics and further assessment. - Constitutional Constitutional: Reports as per HPI - Respiratory Comment: No shortness of breath - Gastrointestinal Gastrointestinal: Reports abdominal pain - Genitourinary (Female) Genitourinary: Reports as per HPI Past Medical History Past Medical History: Heart Failure, Diabetes Mellitus, Hyperlipidemia, Hypertension, Musculoskeletal Disorder, Osteoarthritis (OA), Prostate Disorder, Sleep Apnea/CPAP/BIPAP Additional Past Medical History / Comment(s): EDEMA LOWER EXTREMITIES., USES BIPAP MACHINE. , HERNIATED DISCS WITH BACK PAIN. , BPH. History of Any Multi-Drug Resistant Organisms: None Reported Past Surgical History: Orthopedic Surgery Additional Past Surgical History / Comment(s): NASAL SURGERY Past Anesthesia/Blood Transfusion Reactions: No Reported Reaction Past Psychological History: Anxiety, Depression Smoking Status: Never smoker Past Alcohol Use History: Occasional Past Drug Use History: None Reported - Past Family History Mother Family Medical History: Cancer Father Family Medical History: Cancer Medications and Allergies Home Medications Medication Instructions Recorded Confirmed Type Hydrochlorothiazide 50 mg PO DAILY 12/24/16 12/20/17 History LORazepam [Ativan] 0.5 mg PO DAILY PRN 12/24/16 12/20/17 History Losartan Potassium [Cozaar] 100 mg PO DAILY 12/24/16 12/20/17 History Lovastatin [Mevacor] 40 mg PO HS 12/24/16 12/20/17 History Methocarbamol [Robaxin] 500 mg PO QID 12/24/16 12/20/17 History Metoprolol Tartrate [Lopressor] 100 mg PO BID 12/24/16 12/20/17 History Modafinil [Provigil] 200 mg PO DAILY 12/24/16 12/20/17 History QUEtiapine [SEROquel] 50 mg PO HS PRN 12/24/16 12/20/17 History cloNIDine HCL [Catapres] 0.3 mg PO TID 12/24/16 12/20/17 History glipiZIDE XL [Glucotrol XL] 10 mg PO BID 12/24/16 12/20/17 History hydrALAZINE HCL [Apresoline] 100 mg PO TID 12/24/16 12/20/17 History metFORMIN HCL [Glucophage] 1,000 mg PO BID-W/MEALS 12/24/16 12/20/17 History Tamsulosin [Flomax] 0.4 mg PO DAILY cap.er.24h 12/28/16 12/20/17 Rx Aspirin EC [Ecotrin Low Dose] 81 mg PO DAILY 12/20/17 12/20/17 History Gabapentin 800 mg PO TID 12/20/17 12/20/17 History HYDROcodone/APAP 7.5-325MG [[place] 1 tab PO Q8HR PRN 12/20/17 12/20/17 History 7.5-325] Indomethacin [Indocin] 50 mg PO TID 12/20/17 12/20/17 History Levocetirizine Dihydrochloride 5 mg PO HS 12/20/17 12/20/17 History [Xyzal] Allergies Allergy/AdvReac Type Severity Reaction Status Date / Time No Known Allergies Allergy Verified 12/20/17 14:20 Surgical - Exam Vital Signs Temp Pulse Resp BP Pulse Ox 100.8 F H 75 18 232/116 97 12/20/17 14:39 12/20/17 14:39 12/20/17 14:39 12/20/17 14:39 12/20/17 14:39 - General well developed, well nourished, moderate distress, obese - Eyes PERRL - ENT no hearing loss - Neck trachea midline - Respiratory normal expansion, normal respiratory effort - Cardiovascular Rhythm: regular - Abdomen Abdomen: tender - Genitourinary normal penis with no external lesions, testicles present - Integumentary no rash, no growths - Neurologic normal coordination, normal sensation - Musculoskeletal normal posture - Psychiatric oriented to time, oriented to person, oriented to place, speech is normal, memory intact Results - Imaging CT scan - abdomen: report reviewed CT scan - pelvis: report reviewed Assessment and Plan Assessment: Impression: Acute ureteral colic left due to 6 mm proximal ureteral stone. Intractable pain secondary to stone. Morbid obesity, diabetes, heart disease, hypertension Recommendations the patient will be given IV antibiotics because his fever. He is given IV fluids and parental narcotics for his pain. We'll see how he does this evening but if he continues with pain all make him nothing by mouth and place a stent tomorrow. He is not a candidate for shockwave lithotripsy due to his obesity. If he cannot pass a stone spontaneously he would need a ureteroscopic manipulation. This is been discussed with and understood by the patient
[2017-12-20] MEDS ORDERED: cefTRIAXone IN SWFI 1,000 MG/10 ML SYRINGE IVP STA (16:05)
[2017-12-20] MEDS: SODIUM CHLORIDE 0.9% 1,000 ML IV SCH ×2 (16:16→23:02)
[2017-12-20] MEDS: ENALAPRILAT 1.25 MG/ML 1 ML VIAL IVP PRN (16:23)
[2017-12-20 16:31] LABS: Appearance,Urine Clear (Clear); Bacteria,Urine Occasional /hpf; Bilirubin,Urine Negative (Negative); Blood,Urine Trace (Negative); Color,Urine Yellow; Glucose,Urine (UA) Trace (Negative); Ketones,Urine Negative (Negative); Leukocyte Esterase,Urine Negative (Negative); Mucus,Urine Rare /hpf; Nitrite,Urine Negative (Negative); Protein,Urine 2+ (Negative); RBC,Urine 1 /hpf (0-5); Specific Gravity,Urine 1.011 (1.001-1.035); Squamous Epithelial Cell,Urine <1 /hpf (0-4); Urobilinogen,Urine <2.0 mg/dL (<2.0); WBC,Urine 1 /hpf (0-5)
[2017-12-20] MEDS ORDERED: hydrALAZINE HCL 50 MG TAB PO STA (17:35)
[2017-12-20] MEDS ORDERED: METOPROLOL TARTRATE 50 MG TAB PO STA (17:36)
[2017-12-20] MEDS ORDERED: cloNIDine HCL 0.1 MG TAB PO STA (17:36)
[2017-12-20] MEDS: ACETAMINOPHEN TAB 325 MG TAB PO PRN (20:00)
[2017-12-20 20:28] VITALS: BMI 50.1
[2017-12-20 21:03] LABS: Glucose,Whole Blood 119 mg/dL (75-99)
[2017-12-20] MEDS ORDERED: QUEtiapine 50 MG TAB PO PRN (21:37)
[2017-12-20] MEDS ORDERED: INDOMETHACIN 25 MG CAP PO SCH (22:00)
--- NOTE | 2017-12-20 22:47 | CONS ---
CONSULTATION DATE OF CONSULTATION: 12/20/2017 REASON FOR CONSULTATION: Medical management requested by Dr. Bowser. CONSULTATION: This is a pleasant 57-year-old patient of Dr. Mcintyre whose chronic stable medical conditions include diabetes, hypertension, hyperlipidemia, osteoarthritis, BPH, obstructive sleep apnea, lower back herniated disc, anxiety, depression. The patient 5 days ago on Saturday evening started having left flank pain which continued to become intense. There was some nausea. No fever. The patient was seen in Dr. Bowser's office, sent home. Symptoms never improved. Patient landed back at [facility] today and was transferred here. Their blood work showed a BUN of 24 and creatinine had jumped up from normal to 2.48. A 6 mm stone was found in the ureter at the L4 level with hydronephrosis. Dr. Bowser was contacted, who got the patient transferred to [facility] so intervention could be carried out. REVIEW OF SYSTEMS: CONSTITUTIONAL: Tired. HEENT: None. RESPIRATORY: None. CARDIOVASCULAR: None. GASTROINTESTINAL: As above. GENITOURINARY: None. MUSCULOSKELETAL: Arthritic pain in the lower back. DERMATOLOGICAL: None. HEMATOLOGICAL: None. LYMPHATICS: None. PSYCHIATRY: Anxiety, depression, controlled. NEUROLOGICAL: None. PAST HISTORY: 1. CHF, resolved. 2. Diabetes. 3. Hypertension. 4. Hyperlipidemia. 5. Osteoarthritis. 6. BPH. 7. Obstructive sleep apnea; uses CPAP. 8. Lower back herniated disc. 9. Anxiety. 10.Depression. PAST SURGICAL HISTORY: 1. Orthopedic surgery. 2. Nasal surgery. SOCIAL HISTORY: No smoking. Alcohol occasionally. . Used to work in a machine shop. Unfortunately patient's currently has a stroke at [facility]. FAMILY HISTORY: Cancer, type unknown. HOME MEDICATIONS: 1. Glucophage 1000 mg p.o. b.i.d. with meals. 2. Hydralazine 100 mg p.o. t.i.d. 3. Glucotrol XL 10 mg p.o. b.i.d. 4. Catapres 0.3 mg p.o. t.i.d. 5. Flomax 0.4 mg p.o. daily. 6. Seroquel 50 mg at bedtime p.r.n. 7. Provigil 200 mg p.o. daily. 8. Lopressor 100 mg p.o. b.i.d. 9. Robaxin 500 mg p.o. q.i.d. 10.Mevacor 40 mg at bedtime. 11.Cozaar 100 mg p.o. daily. 12.Xyzal 5 mg p.o. at bedtime. 13.Ativan 0.5 p.o. daily p.r.n. 14.Indocin 50 mg p.o. t.i.d. 15.Hydrochlorothiazide 50 mg p.o. daily. 16.[place] 7.5 one tablet q.8 p.r.n. 17.Neurontin 800 mg p.o. t.i.d. 18.Aspirin 81 mg p.o. daily. ALLERGIES: NONE. PHYSICAL EXAMINATION: Temperature 100.8, pulse 75, respiration 18, blood pressure 232/116, pulse ox 97% on room air. GENERAL APPEARANCE: Morbidly obese. BMI 50.1. Lying in bed, tired-appearing. EYES: Pupils equal. Conjunctivae normal. HEENT: External appearance of nose and ears normal. Oral cavity normal. NECK: JVD not raised. Mass not palpable. RESPIRATORY: Effort normal. LUNGS: Distant breath sounds. CARDIOVASCULAR: Heart sounds muffled. No edema. ABDOMEN: Left flank tenderness. No guarding or rigidity. Liver and spleen not palpable. LYMPHATIC: No lymph node palpable in neck or axillae. PSYCHIATRY: Alert and oriented x3. Mood and affect normal. NEUROLOGICAL: Pupils equal. Cranial nerves grossly intact. Power and sensation grossly intact. INVESTIGATIONS: Blood work from [facility] shows sodium 130, BUN 24, creatinine 2.48. CT scan shows a 6 mm stone in the ureter at the L4 level with hydronephrosis. White count 12.6. ASSESSMENT: 1. Left ureteral stone causing secondary obstructive hydronephrosis with a possible early sepsis-like picture with elevated white count, fever. 2. Acute renal failure, probably a combination of prerenal and acute tubular necrosis. Patient is on Indocin and metformin. 3. Hyponatremia; suspect hypo-osmolar. 4. Diabetes mellitus, type 2, on oral hypoglycemic. 5. Essential hypertension, currently with urgency, as patient had not taken his medications earlier today. 6. Hyperlipidemia. 7. Primary osteoarthritis. 8. Benign prostatic hypertrophy. 9. Obstructive sleep apnea; uses a CPAP machine. 10.Anxiety, depression not otherwise specified. PLAN: Patient is already started on ceftriaxone. Will increase the IV fluids. Home medications are resumed. Will hold off patient's Glucophage. Will also hold off patient's Indocin, hydrochlorothiazide. Will repeat patient's renal function in the morning. If symptoms do not improve, patient may need surgical intervention. Care was discussed with the patient. Thank you, Dr. Bowser. TAMMIE / FELIX: [id number] /
[2017-12-20] MEDS: cloNIDine HCL 0.1 MG TAB PO SCH (22:52)
[2017-12-20] MEDS: GABAPENTIN 400 MG CAP PO SCH (22:52)
[2017-12-20] MEDS: hydrALAZINE HCL 50 MG TAB PO SCH (22:53)
[2017-12-20] MEDS: MORPHINE SULFATE 4MG/4ML SYRG IV PRN (22:57)
[2017-12-21] MEDS: ACETAMINOPHEN TAB 325 MG TAB PO PRN ×2 (01:11→06:11)
[2017-12-21] MEDS: ENALAPRILAT 1.25 MG/ML 1 ML VIAL IVP PRN (02:22)
[2017-12-21] MEDS: MORPHINE SULFATE 4MG/4ML SYRG IV PRN ×2 (03:02→08:45)
[2017-12-21] MEDS: SODIUM CHLORIDE 0.9% 1,000 ML IV SCH ×5 (04:02→21:35)
[2017-12-21] MEDS ORDERED: metFORMIN 500 MG TAB PO SCH (07:30)
[2017-12-21 07:39] LABS: Basophils % (A) 0 %; Eosinophils # (A) 0.2 k/uL (0-0.7); Eosinophils % (A) 2 %; HCT 35.6 % (39.0-53.0); HGB 12.2 gm/dL (13.0-17.5); Lymphocytes # (A) 1.1 k/uL (1.0-4.8); Lymphocytes % (A) 13 %; MCHC 34.4 g/dL (31.0-37.0); MCV 84.4 fL (80.0-100.0); Mean Platelet Volume 7.3; Monocytes # (A) 0.7 k/uL (0-1.0); Monocytes % (A) 8 %; Neutrophils # (A) 6.7 k/uL (1.3-7.7); Neutrophils % (A) 75 %; Platelet Count 224 k/uL (150-450); RBC 4.22 m/uL (4.30-5.90); RDW 12.3 % (11.5-15.5); WBC 8.9 k/uL (3.8-10.6)
[2017-12-21 07:44] LABS: Calcium 8.9 mg/dL (8.4-10.2); Potassium 4.5 mmol/L (3.5-5.1)
[2017-12-21 07:46] LABS: Glucose,Whole Blood 122 mg/dL (75-99)
[2017-12-21] MEDS ORDERED: LOSARTAN 50 MG TAB PO SCH (09:00)
[2017-12-21] MEDS ORDERED: PANTOPRAZOLE 40 MG/10 ML VIAL IV SCH (09:00)
[2017-12-21] MEDS: cefTRIAXone IN SWFI 1,000 MG/10 ML SYRINGE IVP SCH (10:59)
[2017-12-21] MEDS: cloNIDine HCL 0.1 MG TAB PO SCH ×3 (11:00→21:30)
[2017-12-21] MEDS: hydrALAZINE HCL 50 MG TAB PO SCH ×3 (11:00→21:33)
[2017-12-21] MEDS: METOPROLOL TARTRATE 50 MG TAB PO SCH ×2 (11:00→21:31)
[2017-12-21] MEDS: glipiZIDE 10 MG TAB PO SCH ×2 (11:11→17:09)
[2017-12-21] MEDS: INSULIN ASPART 100 UNIT/ML 1 ML 10 ML VIAL SQ SCH ×3 (11:12→17:39)
[2017-12-21] MEDS: GABAPENTIN 400 MG CAP PO SCH ×3 (11:12→21:33)
[2017-12-21] MEDS: ASPIRIN 81 MG PO SCH (11:12)
[2017-12-21] MEDS: TAMSULOSIN 0.4 MG CAP.ER.24H PO SCH (11:13)
[2017-12-21 11:49] LABS: Glucose,Whole Blood 126 mg/dL (75-99)
[2017-12-21] MEDS ORDERED: SODIUM CHLORIDE 0.9% 1,000 ML IV ONE (12:03)
[2017-12-21] MEDS ORDERED: fentaNYL (PF) 50 MCG/ML 2 ML AMP ONE (12:03)
[2017-12-21] MEDS ORDERED: SUCCINYLCHOLINE CHLORIDE VIAL 200 MG/10 ML VIAL IV ONE (12:03)
[2017-12-21] MEDS ORDERED: MIDAZOLAM 2 MG/2 ML VIAL ONE (12:03)
[2017-12-21] MEDS ORDERED: PROPOFOL 10 MG/ML 20 ML VIAL IV ONE (12:03)
[2017-12-21] MEDS ORDERED: IOHEXOL 350 MG/ML 50ML BOTTLE MISCELLANE ONE (12:47)
[2017-12-21] MEDS ORDERED: LACTATED RINGERS 1,000 ML IV ONE (12:49)
--- NOTE | 2017-12-21 12:56 | P.OP ---
Date of Procedure: 12/21/17 Preoperative Diagnosis: Left proximal ureteral stone Postoperative Diagnosis: Same Procedure(s) Performed: Cystoscopy placement of 6 x 26 double-J catheter left Anesthesia: VARSHA HURTADO Surgeon: Hiren Bowser Pathology: none sent Condition: stable Disposition: PACU Indications for Procedure: The patient is a 57-year-old, morbidly obese gentleman 6 foot 2 400 pounds who has a 6 mm proximal ureteral stone causing obstruction pain and renal insufficiency. Because of the size and discomfort and location of the stone is not a candidate for shockwave lithotripsy. I will do a ureteral stent to dilate the ureter and prepare him for a ureteroscopy and a second sitting. Description of Procedure: Patient brought to the operating suite given IV sedation. He's placed lithotomy position with sterile prep and drape. Cystoscopy Foroblique lens and 22-Spanish sheath identifies a normal anterior urethra. The prostate is trilobed very prominent intravesical middle lobe and obstructing. The bladder is difficult to see us the patient is breathing heavily. An 035 wires passed up into what I feel is the pelvis. With difficulty 6 x 28 stent is passed over the wire. I'm not sure it is in the renal pelvis. I elect to remove it over the wire. The patient anesthetized with an endotracheal anesthetic because he is moving too much. This is done successfully. I then am certain now that the wires in the renal pelvis. The stone was popped back up into the renal pelvis. I thus backloaded the wire onto the cystoscope. Then passed a 6 x 26 double- J catheter that coils in the renal pelvis and the bladder the bladder strain the patient's awake and returned recovery room good condition. Tell procedure well. He'll be discharged home later today upon recovery. In about 2 weeks she 'll undergo ureteroscopy to remove the stone. Dictation
--- NOTE | 2017-12-21 12:59 | P.DS ---
Providers Date of admission: 12/20/17 15:23 Attending physician: Hiren Bowser Consults: 12/20/17 15:23 Consult Physician Stat Consulting Provider: Malcolm Woodall Consult Reason/Comments: Medical management, hypertension Do you want consulting provider notified?: Already Contacted Primary care physician: Morales Francisco Javier [facility] Course: The patient was transferred from [facility] with a 6 mm proximal ureteral stone causing obstruction. He is morbidly obese at 400 pounds on a 6 foot 2 inch frame. His creatinine is 2.4. He is having significant colic. The renal colic persisted through the night therefore he will undergo a double- J catheter. This was done successfully on 12/21/2017. He tolerated the procedure well. He has voided. He is tolerated his diet. He'll be discharged home upon recovery. He'll follow-up in the office next week and set up for ureteroscopy and stone and stent removal. He'll resume his home medications. He has Richardson at home. His condition is stable. He had a low-grade fever on admission which is probably atelectasis as his urine and bladder were unremarkable. Patient Condition at Discharge: Good Plan - Discharge Summary Discharge Rx Participant: No New Discharge Prescriptions: No Action cloNIDine HCL [Catapres] 0.3 mg PO TID hydrALAZINE HCL [Apresoline] 100 mg PO TID Metoprolol Tartrate [Lopressor] 100 mg PO BID Losartan Potassium [Cozaar] 100 mg PO DAILY QUEtiapine [SEROquel] 50 mg PO HS PRN PRN Reason: Insomnia Methocarbamol [Robaxin] 500 mg PO QID Lovastatin [Mevacor] 40 mg PO HS metFORMIN HCL [Glucophage] 1,000 mg PO BID-W/MEALS glipiZIDE XL [Glucotrol XL] 10 mg PO BID Modafinil [Provigil] 200 mg PO DAILY LORazepam [Ativan] 0.5 mg PO DAILY PRN PRN Reason: Anxiety Hydrochlorothiazide 50 mg PO DAILY Tamsulosin [Flomax] 0.4 mg PO DAILY cap.er.24h Aspirin EC [Ecotrin Low Dose] 81 mg PO DAILY Gabapentin 800 mg PO TID HYDROcodone/APAP 7.5-325MG [[place] 7.5-325] 1 tab PO Q8HR PRN PRN Reason: Pain Indomethacin [Indocin] 50 mg PO TID Levocetirizine Dihydrochloride [Xyzal] 5 mg PO HS Discharge Medication List Hydrochlorothiazide 50 mg PO DAILY 12/24/16 [History] LORazepam [Ativan] 0.5 mg PO DAILY PRN 12/24/16 [History] Losartan Potassium [Cozaar] 100 mg PO DAILY 12/24/16 [History] Lovastatin [Mevacor] 40 mg PO HS 12/24/16 [History] Methocarbamol [Robaxin] 500 mg PO QID 12/24/16 [History] Metoprolol Tartrate [Lopressor] 100 mg PO BID 12/24/16 [History] Modafinil [Provigil] 200 mg PO DAILY 12/24/16 [History] QUEtiapine [SEROquel] 50 mg PO HS PRN 12/24/16 [History] cloNIDine HCL [Catapres] 0.3 mg PO TID 12/24/16 [History] glipiZIDE XL [Glucotrol XL] 10 mg PO BID 12/24/16 [History] hydrALAZINE HCL [Apresoline] 100 mg PO TID 12/24/16 [History] metFORMIN HCL [Glucophage] 1,000 mg PO BID-W/MEALS 12/24/16 [History] Tamsulosin [Flomax] 0.4 mg PO DAILY cap.er.24h 12/28/16 [Rx] Aspirin EC [Ecotrin Low Dose] 81 mg PO DAILY 12/20/17 [History] Gabapentin 800 mg PO TID 12/20/17 [History] HYDROcodone/APAP 7.5-325MG [[place] 7.5-325] 1 tab PO Q8HR PRN 12/20/17 [History] Indomethacin [Indocin] 50 mg PO TID 12/20/17 [History] Levocetirizine Dihydrochloride [Xyzal] 5 mg PO HS 12/20/17 [History] Follow up Appointment(s)/Referral(s): Morales Mcintyre MD [Primary Care Provider] - 1-2 days Hiren Bowser MD [STAFF PHYSICIAN] - 1 Week Activity/Diet/Wound Care/Special Instructions: the patient should void prior to d/c Discharge Disposition: HOME SELF-CARE
[2017-12-21] MEDS ORDERED: hydrALAZINE HCL 20 MG/ML 1 ML VIAL IVP ONE (13:34)
--- NOTE | 2017-12-21 13:35 | FL ---
FLUOROSCOPY 1 minute and 50 seconds of fluoroscopy time were utilized during left retrograde pyelogram. 1 images document the procedure.
[2017-12-21 17:26] LABS: Glucose,Whole Blood 264 mg/dL (75-99)
--- NOTE | 2017-12-21 19:36 | PN ---
PROGRESS NOTE DATE OF SERVICE: December 21, 2017. PRESENTING COMPLAINT: Left ureteral stone with hydronephrosis. INTERVAL HISTORY: This patient was seen by me earlier today with left ureteral stone obstruction. Patient is pending to go down for his stent placement. Feeling a bit better. Does still having pain. No nausea, vomiting. No nausea, vomiting. REVIEW OF SYSTEMS: Done for constitutional, cardiovascular, GI and pulmonary, relevant findings as above. CURRENT MEDICATIONS: Reviewed. EXAMINATION: Afebrile, pulse 61, respirations 17, blood pressure 146/59, pulse ox 96% on room. General appearance: Lying in bed awake. Eyes: Pupils equal. Conjunctivae normal. HEENT: External appearance of nose and ears normal. Oral cavity normal. Neck JVD not raised. Mass not palpable. Respiratory effort normal. Lungs distant breath sounds. CARDIOVASCULAR: Heart sounds muffled. No edema. Abdomen: Left flank tenderness. No guarding, rigidity. Liver and spleen not palpable. Psychiatry: Alert and oriented x3. Mood and affect normal. INVESTIGATIONS: White count 8.9, potassium 4.5, BUN 29, creatinine 2.40. ASSESSMENT: 1. Left ureteral stone causing secondary obstructive hydronephrosis with possible early sepsis like picture clinically doing better. 2. Acute renal failure probably combination of prerenal acute tubular necrosis. The patient has been Indocin and metformin. 3. Hyponatremia, suspect hypoosmolar, improving. 4. Diabetes mellitus type 2 on oral hypoglycemic. 5. Essential hypertension. 6. Hyperlipidemia. 7. Primary osteoarthritis. 8. Benign prostatic hypertrophy. 9. Obstructive sleep apnea uses CPAP machine. 10.Anxiety, depression not otherwise specified. PLAN: Continue current medication and treatment plan. Later in the day I was called that the patient has been cleared to go home. I did talk to Dr. Bowser given his creatinine was still 2.4 and this is a new finding given normal creatinine just 5 days ago. I did want the patient to get IV fluids overnight. Hopefully his creatinine will come down by morning. We will continue with IV fluids and repeat electrolytes in the morning. Thank you, Dr. Bowser. TAMMIE / FELIX: [id number] /
[2017-12-21] MEDS ORDERED: ATORVASTATIN 10 MG TAB PO SCH (21:00)
[2017-12-21] MEDS ORDERED: LORATADINE 10 MG TAB PO SCH (21:00)
[2017-12-22 03:17] VITALS: PULSE 63
[2017-12-22] MEDS: MORPHINE ORAL SOLN 10 MG/5 ML CUP PO PRN ×2 (03:39→06:43)
[2017-12-22] MEDS: SODIUM CHLORIDE 0.9% 1,000 ML IV SCH ×3 (05:49→06:43)
[2017-12-22 06:42] VITALS: BP 157/80; RESP 18; TEMP 98.7
[2017-12-22] MEDS: glipiZIDE 10 MG TAB PO SCH (06:47)
[2017-12-22] MEDS: cloNIDine HCL 0.1 MG TAB PO SCH (06:47)
[2017-12-22] MEDS: METOPROLOL TARTRATE 50 MG TAB PO SCH (06:48)
[2017-12-22] MEDS: TAMSULOSIN 0.4 MG CAP.ER.24H PO SCH (06:48)
[2017-12-22] MEDS: hydrALAZINE HCL 50 MG TAB PO SCH (06:48)
[2017-12-22] MEDS: ASPIRIN 81 MG PO SCH (06:48)
[2017-12-22] MEDS: GABAPENTIN 400 MG CAP PO SCH (06:49)
[2017-12-22] MEDS: cefTRIAXone IN SWFI 1,000 MG/10 ML SYRINGE IVP SCH (06:52)
[2017-12-22 07:29] LABS: Glucose,Whole Blood 213 mg/dL (75-99)
[2017-12-22 07:56] LABS: Calcium 8.5 mg/dL (8.4-10.2)
[2017-12-22 08:00] LABS: Potassium 4.3 mmol/L (3.5-5.1)
[2017-12-22] MEDS: INSULIN ASPART 100 UNIT/ML 1 ML 10 ML VIAL SQ SCH (08:04)
--- NOTE | 2017-12-22 11:01 | P.PN ---
Subjective Progress Note Date: 12/22/17 The patient has been in the hospital for a left ureteral stone with obstruction. He had increasing renal insufficiency due to his obstruction. He has morbid obesity diabetes hypertension. He had a left ureteral stent to relieve his obstruction yesterday. Because of his elevated creatinine Dr. Woodall wish that we continue with IV overnight. His creatinine this morning is 1.6. He'll be discharged home. He is voiding better. He feels better. I will see him in the office next week and set him up for cystoscopy stent and stone removal in the near future. Objective - Vital Signs Vital signs: Vital Signs Temp 98.7 F 12/22/17 06:40 Pulse 63 12/22/17 06:40 Resp 18 12/22/17 08:00 BP 157/80 12/22/17 06:40 Pulse Ox 95 12/22/17 07:12 Intake & Output 12/21/17 12/22/17 12/22/17 18:59 06:59 18:59 Intake Total 1337 2500 118 Output Total 100 650 Balance 1237 1850 118 Intake: IV 300 Intake, IV Titration 800 1800 Amount Sodium Chloride 0.9% 1, 800 000 ml @ 100 mls/hr IV . Q10H KD Rx#:[id number] Sodium Chloride 0.9% 1, 800 1000 000 ml @ 125 mls/hr IV . Q8H KD Rx#:[id number] Oral 237 700 118 Output: Urine 100 650 Other: Voiding Method Toilet Urinal Urinal Urinal # Voids 3 2 1 - Labs CBC & Chem 7: 12/21/17 06:17 12/22/17 06:56 Labs: Abnormal Lab Results - Last 24 Hours (Table) 12/21/17 12/21/17 12/22/17 Range/Units 11:35 17:23 06:56 Sodium 135 L (137-145) mmol/L BUN 30 H (9-20) mg/dL Creatinine 1.62 H (0.66-1.25) mg/dL Glucose 197 H (74-99) mg/dL POC Glucose (mg/dL) 126 H 264 H (75-99) mg/dL 12/22/17 Range/Units 07:16 Sodium (137-145) mmol/L BUN (9-20) mg/dL Creatinine (0.66-1.25) mg/dL Glucose (74-99) mg/dL POC Glucose (mg/dL) 213 H (75-99) mg/dL Microbiology - Last 24 Hours (Table) 12/20/17 16:10 Urine Culture - Final Urine,Voided 12/20/17 Unknown Blood Culture - Preliminary Blood No Growth after 24 hours
--- NOTE | 2017-12-22 14:19 | PN ---
PROGRESS NOTE DATE OF SERVICE: 12/22/17. PRESENTING COMPLAINT: Left ureteral stone with stent. INTERVAL HISTORY: The patient presented with left hydronephrosis, left ureteral stone and sepsis, status post stent. I held him back because creatinine was 2.4, is down to 1.6 today. Overall feeling much better. I discontinued the patient's Indocin and hydrochlorothiazide. Tolerating a diet. REVIEW OF SYSTEMS: Done for constitutional, cardiovascular, GI, pulmonary; relevant findings as above. CURRENT MEDICATIONS: Reviewed. EXAMINATION: Temperature 98.7, pulse 53, respiratory 18, blood pressure 157/80, pulse ox 97% on room air. GENERAL APPEARANCE: Lying in bed, comfortable. EYES: Pupils equal. Conjunctivae normal. HEENT: External nose and ears normal. Oral cavity normal. NECK: JVD not raised. Mass not palpable. RESPIRATORY: Effort normal. Lungs, distant breath sounds. CARDIOVASCULAR: Heart sounds muffled. No edema. ABDOMEN: Soft, nontender. Liver and spleen not palpable. PSYCHIATRY: Alert and oriented x3. Mood and affect normal. INVESTIGATIONS: BUN 30, creatinine 1.62. ASSESSMENT: 1. Left ureteral stone causing secondary obstructive hydronephrosis, now with a stent in place. 2. Acute renal failure probably combination of prerenal, acute tubular necrosis, much improving. The patient's Indocin and hydrochlorothiazide have been discontinued. 3. Hyponatremia hypoosmolar, improved. 4. Diabetes mellitus type 2, on oral hypoglycemic. 5. Essential hypertension. 6. Hyperlipidemia. 7. Primary osteoarthritis. 8. Benign prostatic hypertrophy. 9. Obstructive sleep apnea uses CPAP machine. 10.Anxiety, depression, not otherwise specified. PLAN: Care was discussed with the patient. I told him to stop taking his Indocin and hydrochlorothiazide. DC medications adjusted accordingly. He will have BMP checked in 3 days time. Otherwise, other orders as per Dr. Bowser. Thank you Dr. Bowser. MMODL / IJN: [id number] /
== END 2017-12-22 12:15 | disposition home or self-care (01) | DRG 871 ==
LOC: EC 14:06 → 3SUR 15:23
PROVIDERS: ADMIT Urology; ATTEND Urology
PROC: 0TJB8ZZ Inspection of Bladder, Via Natural or Artificial Opening Endoscopic (ICD-10-PCS; principal; 2017-12-21 12:00)
PROC: 0T778DZ Dilation of Left Ureter with Intraluminal Device, Via Natural or Artificial Opening Endoscopic (ICD-10-PCS; principal; 2017-12-21 12:00)
DX: A41.9 Sepsis, unspecified organism (principal); N17.0 Acute kidney failure with tubular necrosis; N13.2 Hydronephrosis with renal and ureteral calculous obstruction; E87.1 Hypo-osmolality and hyponatremia; Z68.43 Body mass index [BMI] 50.0-59.9, adult; E66.01 Morbid (severe) obesity due to excess calories; I11.0 Hypertensive heart disease with heart failure; E11.9 Type 2 diabetes mellitus without complications; E78.5 Hyperlipidemia, unspecified; F32.9 Major depressive disorder, single episode, unspecified; F41.9 Anxiety disorder, unspecified; G47.33 Obstructive sleep apnea (adult) (pediatric); M19.91 Primary osteoarthritis, unspecified site; M47.9 Spondylosis, unspecified; N40.0 Benign prostatic hyperplasia without lower urinary tract symptoms; Z79.82 Long term (current) use of aspirin; Z79.84 Long term (current) use of oral hypoglycemic drugs; Z79.899 Other long term (current) drug therapy; Z79.891 Long term (current) use of opiate analgesic; I50.9 Heart failure, unspecified
CPT/HCPCS: 36415; 74420; 80048; 81001; 85025; 87040; 87086; 94760; 96361; 96374; 96375; 99285

== ENCOUNTER → 2017-12-27 | Outpatient (CLI) | payer MEDICARE ==
--- NOTE | 2017-12-27 13:34 | XR ---
Abdomen HISTORY: Kidney stone Frontal view of the abdomen on [address] from outside institution 2017 Left double-J ureteral stent is present and has been placed in the interval. Calcification is present along the proximal aspect of the left ureter at approximately the L3-4 level correlates with the CT findings and is thought to measure approximately 6 mm but is not well seen. Patient is post left hip arthroplasty. IMPRESSION: Double-J ureteral stent. Proximal ureteral calculus suspected limitations as described.
== END | disposition home or self-care (01) ==
LOC: RADXRMAIN 10:59
PROVIDERS: ATTEND Urology
DX: N20.0 Calculus of kidney (principal); Z96.0 Presence of urogenital implants
CPT/HCPCS: 74018

== ENCOUNTER 2018-01-20 14:32 | Inpatient (IN) | payer MEDICARE ==
[2018-01-20] MEDS ORDERED: LABETALOL 5 MG/ML VIAL MDV IVP STA (14:46)
[2018-01-20 15:10] LABS: Basophils % (A) 0 %; Eosinophils # (A) 0.4 k/uL (0-0.7); Eosinophils % (A) 5 %; HCT 41.9 % (39.0-53.0); HGB 15.1 gm/dL (13.0-17.5); Lymphocytes # (A) 1.6 k/uL (1.0-4.8); Lymphocytes % (A) 22 %; MCH 29.2 pg (25.0-35.0); MCHC 36.1 g/dL (31.0-37.0); MCV 80.9 fL (80.0-100.0); Mean Platelet Volume 6.7; Monocytes # (A) 0.4 k/uL (0-1.0); Monocytes % (A) 6 %; Neutrophils # (A) 4.8 k/uL (1.3-7.7); Neutrophils % (A) 66 %; Platelet Count 197 k/uL (150-450); RBC 5.17 m/uL (4.30-5.90); RDW 12.6 % (11.5-15.5); WBC 7.3 k/uL (3.8-10.6)
[2018-01-20 15:16] LABS: Prothrombin Time 10.1 sec (9.0-12.0)
[2018-01-20 15:18] LABS: ALT 29 U/L (21-72); AST 23 U/L (17-59); Alkaline Phosphatase 79 U/L (38-126); Anion Gap 17 mmol/L; Blood Urea Nitrogen 16 mg/dL (9-20); Calcium 9.5 mg/dL (8.4-10.2); Carbon Dioxide 23 mmol/L (22-30); Chloride 104 mmol/L (98-107); Glucose 203 mg/dL (74-99); Magnesium 1.6 mg/dL (1.6-2.3); Potassium 3.8 mmol/L (3.5-5.1); Sodium 144 mmol/L (137-145); Total Bilirubin 1.4 mg/dL (0.2-1.3); Total Protein 6.5 g/dL (6.3-8.2)
[2018-01-20 15:33] LABS: Partial Thromboplastin Time 18.6 sec (22.0-30.0)
--- NOTE | 2018-01-20 15:38 | ED ---
Recheck HPI - General Chief Complaint: Recheck/Abnormal Lab/Rx Stated Complaint: Hypertension Time Seen by Provider: 01/20/18 14:34 Source: patient, RN notes reviewed Mode of arrival: EMS Limitations: no limitations - History of Present Illness Initial Comments: 57-year-old male presents emergency department via EMS from [facility] surgery for hypertension. Patient was scheduled for lithotripsy today by urology. Patient states that he was given medications they are by anesthesiologist which include labetalol, hydralazine, nitro, pain medication and Versed. Patient states that his blood pressure still elevated was sent here. Patient does take losartan and metoprolol and clonidine at home for blood pressure did take his medications today. Patient denies any current pain denies chest pain, shortness breath, headache or dizziness. - Related Data Home Medications Medication Instructions Recorded Confirmed Hydrochlorothiazide 50 mg PO DAILY 12/24/16 01/20/18 LORazepam [Ativan] 0.5 mg PO DAILY PRN 12/24/16 01/20/18 Losartan Potassium [Cozaar] 100 mg PO DAILY 12/24/16 01/20/18 Lovastatin [Mevacor] 40 mg PO HS 12/24/16 01/20/18 Methocarbamol [Robaxin] 500 mg PO QID 12/24/16 01/20/18 Metoprolol Tartrate [Lopressor] 100 mg PO BID 12/24/16 01/20/18 Modafinil [Provigil] 200 mg PO DAILY 12/24/16 01/20/18 QUEtiapine [SEROquel] 50 mg PO HS PRN 12/24/16 01/20/18 cloNIDine HCL [Catapres] 0.3 mg PO TID 12/24/16 01/20/18 glipiZIDE XL [Glucotrol XL] 10 mg PO BID 12/24/16 01/20/18 hydrALAZINE HCL [Apresoline] 100 mg PO TID 12/24/16 01/20/18 metFORMIN HCL [Glucophage] 1,000 mg PO BID-W/MEALS 12/24/16 01/20/18 Aspirin EC [Ecotrin Low Dose] 81 mg PO DAILY 12/20/17 01/20/18 Gabapentin 800 mg PO TID 12/20/17 01/20/18 HYDROcodone/APAP 7.5-325MG [[place] 1 tab PO Q8HR PRN 12/20/17 01/20/18 7.5-325] Indomethacin [Indocin] 50 mg PO TID 12/20/17 01/20/18 Levocetirizine Dihydrochloride 5 mg PO HS 12/20/17 01/20/18 [Xyzal] Previous Rx's Medication Instructions Recorded Tamsulosin [Flomax] 0.4 mg PO DAILY cap.er.24h 12/28/16 Allergies Allergy/AdvReac Type Severity Reaction Status Date / Time No Known Allergies Allergy Verified 01/20/18 15:14 Review of Systems ROS Statement: Those systems with pertinent positive or pertinent negative responses have been documented in the HPI. ROS Other: All systems not noted in ROS Statement are negative. Past Medical History Past Medical History: Heart Failure, Diabetes Mellitus, Hyperlipidemia, Hypertension, Musculoskeletal Disorder, Osteoarthritis (OA), Prostate Disorder, Sleep Apnea/CPAP/BIPAP Additional Past Medical History / Comment(s): EDEMA LOWER EXTREMITIES., USES BIPAP MACHINE. , HERNIATED DISCS WITH BACK PAIN. , BPH. History of Any Multi-Drug Resistant Organisms: None Reported Past Surgical History: Orthopedic Surgery Additional Past Surgical History / Comment(s): NASAL SURGERY, lt hip Past Anesthesia/Blood Transfusion Reactions: No Reported Reaction Past Psychological History: Anxiety, Depression Smoking Status: Never smoker Past Alcohol Use History: Abuse, Occasional Past Drug Use History: None Reported - Past Family History Mother Family Medical History: Cancer Father Family Medical History: Cancer General Exam Limitations: no limitations General appearance: alert, in no apparent distress, obese Head exam: Present: atraumatic, normocephalic, normal inspection Eye exam: Present: normal appearance, PERRL, EOMI. Absent: scleral icterus, conjunctival injection, periorbital swelling ENT exam: Present: normal exam, mucous membranes moist Neck exam: Present: normal inspection. Absent: tenderness, meningismus, lymphadenopathy Respiratory exam: Present: normal lung sounds bilaterally. Absent: respiratory distress, wheezes, rales, rhonchi, stridor Cardiovascular Exam: Present: regular rate, normal rhythm, normal heart sounds. Absent: systolic murmur, diastolic murmur, rubs, gallop, clicks Back exam: Absent: CVA tenderness (R), CVA tenderness (L) Course Vital Signs 01/20/18 01/20/1801/20/18 14:41 14:50 15:15 Temperature 99.2 F Pulse Rate 80 78 72 Respiratory 18 20 20 Rate Blood Pressure 206/101 215/115 206/104 O2 Sat by Pulse 97 99 99 Oximetry 01/20/18 15:30 Temperature Pulse Rate 84 Respiratory 20 Rate Blood Pressure 170/83 O2 Sat by Pulse 96 Oximetry Medical Decision Making - Medical Decision Making 57-year-old male presents from for hypertension. Patient was found to be hypertensive after multiple medications given by anesthesiologist. Patient had 15 labetalol, 20 hydralazine, 2 inches of Nitropaste, Versed and fentanyl. Patient was given 20 labetalol in emergency department blood pressure has improved though he has some lateral lead changes inverted T wave V4 V5 V6 patient had no prior EKG to compare to. Patient's troponin is minimally elevated. Patiently admitted for heparin, cardiology consult - Lab Data Result diagrams: 01/20/18 14:54 01/20/18 14:54 Lab Results 01/20/18 01/20/18 01/20/18 Range/Units 14:54 14:54 14:54 WBC 7.3 (3.8-10.6) k/uL RBC 5.17 (4.30-5.90) m/uL Hgb 15.1 (13.0-17.5) gm/dL Hct 41.9 (39.0-53.0) % MCV 80.9 (80.0-100.0) fL MCH 29.2 (25.0-35.0) pg MCHC 36.1 (31.0-37.0) g/dL RDW 12.6 (11.5-15.5) % Plt Count 197 (150-450) k/uL Neutrophils % 66 % Lymphocytes % 22 % Monocytes % 6 % Eosinophils % 5 % Basophils % 0 % Neutrophils # 4.8 (1.3-7.7) k/uL Lymphocytes # 1.6 (1.0-4.8) k/uL Monocytes # 0.4 (0-1.0) k/uL Eosinophils # 0.4 (0-0.7) k/uL Basophils # 0.0 (0-0.2) k/uL PT (9.0-12.0) sec INR (<1.2) APTT (22.0-30.0) sec Sodium 144 (137-145) mmol/L Potassium 3.8 (3.5-5.1) mmol/L Chloride 104 (98-107) mmol/L Carbon Dioxide 23 (22-30) mmol/L Anion Gap 17 mmol/L BUN 16 (9-20) mg/dL Creatinine 0.99 (0.66-1.25) mg/dL Est GFR (CKD-EPI)AfAm >90 (>60 ml/min/1.73 sqM) Est GFR (CKD-EPI)NonAf 83 (>60 ml/min/1.73 sqM) Glucose 203 H (74-99) mg/dL Calcium 9.5 (8.4-10.2) mg/dL Magnesium 1.6 (1.6-2.3) mg/dL Total Bilirubin 1.4 H (0.2-1.3) mg/dL AST 23 (17-59) U/L ALT 29 (21-72) U/L Alkaline Phosphatase 79 (38-126) U/L Total Creatine Kinase 102 (55-170) U/L CK-MB (CK-2) 2.7 H* (0.0-2.4) ng/mL CK-MB (CK-2) Rel Index 2.6 Troponin I 0.036 H* (0.000-0.034) ng/mL Total Protein 6.5 (6.3-8.2) g/dL Albumin 4.0 (3.5-5.0) g/dL 01/20/18 Range/Units 14:54 WBC (3.8-10.6) k/uL RBC (4.30-5.90) m/uL Hgb (13.0-17.5) gm/dL Hct (39.0-53.0) % MCV (80.0-100.0) fL MCH (25.0-35.0) pg MCHC (31.0-37.0) g/dL RDW (11.5-15.5) % Plt Count (150-450) k/uL Neutrophils % % Lymphocytes % % Monocytes % % Eosinophils % % Basophils % % Neutrophils # (1.3-7.7) k/uL Lymphocytes # (1.0-4.8) k/uL Monocytes # (0-1.0) k/uL Eosinophils # (0-0.7) k/uL Basophils # (0-0.2) k/uL PT 10.1 (9.0-12.0) sec INR 1.0 (<1.2) APTT 18.6 L (22.0-30.0) sec Sodium (137-145) mmol/L Potassium (3.5-5.1) mmol/L Chloride (98-107) mmol/L Carbon Dioxide (22-30) mmol/L Anion Gap mmol/L BUN (9-20) mg/dL Creatinine (0.66-1.25) mg/dL Est GFR (CKD-EPI)AfAm (>60 ml/min/1.73 sqM) Est GFR (CKD-EPI)NonAf (>60 ml/min/1.73 sqM) Glucose (74-99) mg/dL Calcium (8.4-10.2) mg/dL Magnesium (1.6-2.3) mg/dL Total Bilirubin (0.2-1.3) mg/dL AST (17-59) U/L ALT (21-72) U/L Alkaline Phosphatase (38-126) U/L Total Creatine Kinase (55-170) U/L CK-MB (CK-2) (0.0-2.4) ng/mL CK-MB (CK-2) Rel Index Troponin I (0.000-0.034) ng/mL Total Protein (6.3-8.2) g/dL Albumin (3.5-5.0) g/dL Disposition Clinical Impression: Hypertensive emergency, Elevated troponin Disposition: ADMITTED IP TO THIS HOSP Condition: Stable Referrals: Morales Mcintyre MD [Primary Care Provider] - 1-2 days
[2018-01-20 15:43] LABS: Creatine Kinase MB 2.7 ng/mL (0.0-2.4); Troponin I 0.036 ng/mL (0.000-0.034)
[2018-01-20] MEDS ORDERED: ASPIRIN 81 MG PO STA (15:56)
[2018-01-20] MEDS ORDERED: HEPARIN SODIUM,PORCINE 5,000 UNIT/ML 1 ML VIAL IV ONE (15:56)
[2018-01-20] MEDS ORDERED: NITROGLYCERIN SL TABS 0.4 MG TAB SUBLINGUAL PRN (15:56)
[2018-01-20] MEDS ORDERED: LORazepam 0.5 MG TAB PO PRN (16:04)
[2018-01-20] MEDS ORDERED: HYDROcodone/APAP 7.5-325MG 1 EACH TAB PO PRN (16:04)
[2018-01-20] MEDS: ACETAMINOPHEN TAB 325 MG TAB PO PRN ×2 (16:38→20:41)
[2018-01-20] MEDS: HEPARIN SODIUM,PORCINE/D5W PMX 25,000 UNIT in DEXTROSE/WATER 1 500ML.BAG IV SCH (16:43)
[2018-01-20] MEDS: metFORMIN 500 MG TAB PO SCH (18:42)
[2018-01-20] MEDS: METHOCARBAMOL 500 MG TAB PO SCH ×2 (18:42→21:34)
[2018-01-20 20:15] LABS: Glucose,Whole Blood 246 mg/dL (75-99)
[2018-01-20] MEDS: ATORVASTATIN 10 MG TAB PO SCH (20:40)
[2018-01-20] MEDS: METOPROLOL TARTRATE 50 MG TAB PO SCH (20:41)
[2018-01-20] MEDS: glipiZIDE 10 MG TAB PO SCH (20:41)
[2018-01-20] MEDS: LORATADINE 10 MG TAB PO SCH (20:41)
[2018-01-20] MEDS: cloNIDine HCL 0.1 MG TAB PO SCH (20:41)
[2018-01-20] MEDS: INSULIN ASPART 100 UNIT/ML 1 ML 10 ML VIAL SQ SCH (20:41)
[2018-01-20] MEDS: GABAPENTIN 400 MG CAP PO SCH (21:34)
[2018-01-20] MEDS: hydrALAZINE HCL 50 MG TAB PO SCH (21:35)
[2018-01-20 21:40] LABS: Creatine Kinase MB 2.2 ng/mL (0.0-2.4)
[2018-01-20 21:42] LABS: Troponin I 0.036 ng/mL (0.000-0.034)
[2018-01-20] MEDS: HEPARIN SODIUM,PORCINE 5,000 UNIT/ML 1 ML VIAL IV PRN (21:55)
--- NOTE | 2018-01-20 22:42 | P.HPIM ---
History of Present Illness H&P Date: 01/20/18 Chief Complaint: Uncontrolled hypertension Patient is a 57-year-old male with a known history of hypertension, diabetes type 2, obstructive sleep apnea, and chronic lower extremity edema , morbid obesity and congestive heart failure who was initially admitted for lithotripsy by urology. After the procedure patient was found have uncontrolled hypertension. Patient states that he was given medications they are by anesthesiologist which include labetalol, hydralazine, nitro, pain medication and Versed. Patient states that his blood pressure still elevated was sent to ER. Patient does take losartan and metoprolol and clonidine at home for blood pressure did take his medications today. Patient denies any chest pain, shortness breath, headache or dizziness. No nausea vomiting. Blood pressure was 20 6/1 01 Troponin 0.036 EKG showed normal sinus rhythm Review of Systems Constitutional: Patient denies any fever or chills . No generalized weakness or weight loss. Abdomen: Patient denied nausea vomiting and diarrhea and abdominal pain. Cardiovascular: Patient denies any chest pain or short of breath no palpitations. Respiratory: patient denied any cough is from production. No shortness of breath Neurologic: Patient denied any numbness or tingling headache. Musculoskeletal: Patient denies any complaints of joint swelling or deformity. Skin: Negative Psychiatric: Negative Endocrine: No heat or cold intolerance. No recent weight gain. Genitourinary: No dysuria or hematuria. All other 14 point ROS negative except the above Past Medical History Past Medical History: Heart Failure, Diabetes Mellitus, Hyperlipidemia, Hypertension, Musculoskeletal Disorder, Osteoarthritis (OA), Prostate Disorder, Sleep Apnea/CPAP/BIPAP Additional Past Medical History / Comment(s): EDEMA LOWER EXTREMITIES., USES BIPAP MACHINE. , HERNIATED DISCS WITH BACK PAIN. , BPH. History of Any Multi-Drug Resistant Organisms: None Reported Past Surgical History: Orthopedic Surgery Additional Past Surgical History / Comment(s): NASAL SURGERY, lt hip, cystocopy w/ureteral stent on 12/21/17 Past Anesthesia/Blood Transfusion Reactions: No Reported Reaction Smoking Status: Never smoker - Past Family History Mother Family Medical History: Cancer Father Family Medical History: Cancer Medications and Allergies Home Medications Medication Instructions Recorded Confirmed Type Hydrochlorothiazide 50 mg PO DAILY 12/24/16 01/20/18 History LORazepam [Ativan] 0.5 mg PO DAILY PRN 12/24/16 01/20/18 History Losartan Potassium [Cozaar] 100 mg PO DAILY 12/24/16 01/20/18 History Lovastatin [Mevacor] 40 mg PO HS 12/24/16 01/20/18 History Methocarbamol [Robaxin] 500 mg PO QID 12/24/16 01/20/18 History Metoprolol Tartrate [Lopressor] 100 mg PO BID 12/24/16 01/20/18 History Modafinil [Provigil] 200 mg PO DAILY 12/24/16 01/20/18 History QUEtiapine [SEROquel] 50 mg PO HS PRN 12/24/16 01/20/18 History cloNIDine HCL [Catapres] 0.3 mg PO TID 12/24/16 01/20/18 History glipiZIDE XL [Glucotrol XL] 10 mg PO BID 12/24/16 01/20/18 History hydrALAZINE HCL [Apresoline] 100 mg PO TID 12/24/16 01/20/18 History metFORMIN HCL [Glucophage] 1,000 mg PO BID-W/MEALS 12/24/16 01/20/18 History Tamsulosin [Flomax] 0.4 mg PO DAILY cap.er.24h 12/28/16 01/20/18 Rx Aspirin EC [Ecotrin Low Dose] 81 mg PO DAILY 12/20/17 01/20/18 History Gabapentin 800 mg PO TID 12/20/17 01/20/18 History HYDROcodone/APAP 7.5-325MG [[place] 1 tab PO Q8HR PRN 12/20/17 01/20/18 History 7.5-325] Indomethacin [Indocin] 50 mg PO TID 12/20/17 01/20/18 History Levocetirizine Dihydrochloride 5 mg PO HS 12/20/17 01/20/18 History [Xyzal] Allergies Allergy/AdvReac Type Severity Reaction Status Date / Time No Known Allergies Allergy Verified 01/20/18 15:14 Physical Exam Vitals: Vital Signs Temp Pulse Pulse Resp BP BP Pulse Ox 01/20/18 21:35 176/96 01/20/18 20:05 98.7 F 83 18 187/94 95 01/20/18 18:50 89 18 189/94 96 05/07/18 18:11 98.2 F 05/07/18 18:00 92 20 171/81 99 01/20/18 16:00 80 20 151/67 96 01/20/18 15:30 84 20 170/83 96 01/20/18 15:15 72 20 206/104 99 01/20/18 14:50 78 20 215/115 99 01/20/18 14:41 99.2 F 80 18 206/101 97 Intake and Output 01/20/18 01/20/18 01/20/18 06:59 14:59 22:59 Intake Total 99.95 Output Total 300 Balance -200.05 Intake: Intake, IV Titration 99.95 Amount Heparin Sodium,Porcine/ 99.95 D5w Pmx 25,000 unit In Dextrose/Water 1 500ml. bag @ 5.8 UNITS/KG/HR 19. 99 mls/hr IV .Q24H [facility] Rx #:[id number] Output: Urine 300 Other: Voiding Method Urinal Weight 172.365 kg PHYSICAL EXAMINATION: Patient is lying in the bed comfortably, no acute distress, awake alert and oriented. Morbidly obese. HEENT: Normocephalic. Neck is supple. Pupils reactive. Nostrils clear. Oral cavity is moist. Ears reveal no drainage. Neck reveals no JVD, carotid bruits, or thyromegaly. CHEST EXAMINATION: Trachea is central. Symmetrical expansion. Bibasilar diminished breath sounds .no wheezing Lung huerta clear to auscultation and percussion. CARDIAC: Normal S1, S2 with no gallops. No murmurs ABDOMEN: Soft. Bowel sounds normal. No organomegaly. No abdominal bruits. Extremities: 2+ edema. No clubbing or cyanosis Neurologically awake, alert, oriented x3 with well-coordinated movements. No focal deficits noted Skin: No rash or skin lesions. Psychiatric: Cooperative. Nonsuicidal Musculoskeletal: No joint swelling or deformity. Normal range of motion. Results CBC & Chem 7: 01/20/18 14:54 01/20/18 14:54 Labs: Abnormal Lab Results - Last 24 Hours (Table) 01/20/18 01/20/18 01/20/18 Range/Units 14:54 14:54 14:54 APTT 18.6 L (22.0-30.0) sec Glucose 203 H (74-99) mg/dL POC Glucose (mg/dL) (75-99) mg/dL Total Bilirubin 1.4 H (0.2-1.3) mg/dL CK-MB (CK-2) 2.7 H* (0.0-2.4) ng/mL Troponin I 0.036 H* (0.000-0.034) ng/mL 01/20/18 01/20/18 Range/Units 20:04 20:54 APTT (22.0-30.0) sec Glucose (74-99) mg/dL POC Glucose (mg/dL) 246 H (75-99) mg/dL Total Bilirubin (0.2-1.3) mg/dL CK-MB (CK-2) (0.0-2.4) ng/mL Troponin I 0.036 H* (0.000-0.034) ng/mL Thrombosis Risk Factor Assmnt - DVT/VTE Prophylaxis DVT/VTE Prophylaxis: Pharmacologic Prophylaxis ordered - Choose All That Apply Any of the Below Risk Factors Present?: Yes Each Factor Represents 1 point: Age 41-60 years Thrombosis Risk Factor Assessment Total Risk Factor Score: 1 Thrombosis Risk Factor Assessment Level: Low Risk Assessment and Plan Assessment: Hypertensive emergency on admission Elevated troponin level likely due to uncontrolled hypertension. Rule out ACS Diabetes type 2 Osteoarthritis of multiple joints Chronic lower extremity edema Morbid obesity with BMI 48.8 Obstructive sleep apnea on BiPAP at home Chronic back pain with herniated discs BPH Nephrolithiasis. Status post ureteral stent placement on 12/21/2017 and lithotripsy on 01/20/2018 Plan: Patient was given a dose of labetalol IV 20 mg when the ER. Started back on his home medications including Catapres 0.3 mg 3 times a day, hydralazine, metoprolol, hydrochlorothiazide and losartan. Continue with telemetry monitoring and serial troponins. Patient was started on heparin drip and cardiology was consulted. Further recommendations based on the clinical course. Time with Patient: Greater than 30
--- NOTE | 2018-01-20 23:00 | XR ---
EXAMINATION TYPE: XR chest 1V DATE OF EXAM: 01/20/2018 COMPARISON: NONE HISTORY: Short of breath TECHNIQUE: Single frontal view of the chest is obtained. FINDINGS: There is no heart failure nor confluent pneumonic infiltrate. Costophrenic angles are vijay r. There are chest leads. IMPRESSION: No active cardiopulmonary disease.
[2018-01-20] MEDS: QUEtiapine 50 MG TAB PO PRN (23:15)
[2018-01-21 03:05] LABS: Mean Platelet Volume 7.7; Platelet Count 205 k/uL (150-450)
[2018-01-21 03:14] LABS: Cholesterol 125 mg/dL (<200); HDL Cholesterol 33 mg/dL (40-60); LDL Cholesterol,Calculated 58 mg/dL (0-99); Triglycerides 169 mg/dL (<150)
[2018-01-21] MEDS: HEPARIN SODIUM,PORCINE 5,000 UNIT/ML 1 ML VIAL IV PRN ×2 (03:41→11:55)
[2018-01-21 03:46] LABS: Creatine Kinase MB 1.7 ng/mL (0.0-2.4)
[2018-01-21 03:49] LABS: Troponin I 0.044 ng/mL (0.000-0.034)
[2018-01-21 05:21] LABS: Glucose,Whole Blood 124 mg/dL (75-99)
[2018-01-21] MEDS: INSULIN ASPART 100 UNIT/ML 1 ML 10 ML VIAL SQ SCH ×4 (06:13→21:15)
[2018-01-21] MEDS: metFORMIN 500 MG TAB PO SCH ×2 (08:51→17:28)
[2018-01-21] MEDS: METHOCARBAMOL 500 MG TAB PO SCH ×4 (08:51→21:15)
[2018-01-21] MEDS: TAMSULOSIN 0.4 MG CAP.ER.24H PO SCH (08:52)
[2018-01-21] MEDS: ASPIRIN 325 MG TAB PO SCH (08:52)
[2018-01-21] MEDS: glipiZIDE 10 MG TAB PO SCH ×2 (08:52→20:19)
[2018-01-21] MEDS: hydrALAZINE HCL 50 MG TAB PO SCH ×3 (08:52→21:15)
[2018-01-21] MEDS: cloNIDine HCL 0.1 MG TAB PO SCH ×3 (08:52→21:15)
[2018-01-21] MEDS: GABAPENTIN 400 MG CAP PO SCH ×3 (08:52→21:15)
[2018-01-21] MEDS: METOPROLOL TARTRATE 50 MG TAB PO SCH ×2 (08:52→20:19)
[2018-01-21] MEDS ORDERED: LOSARTAN 50 MG TAB PO SCH (09:00)
[2018-01-21] MEDS ORDERED: HYDROCHLOROTHIAZIDE 50 MG TAB PO SCH (09:00)
[2018-01-21 10:02] LABS: Glucose,Whole Blood 187 mg/dL (75-99)
[2018-01-21 11:58] LABS: Glucose,Whole Blood 221 mg/dL (75-99)
[2018-01-21] MEDS: MODAFINIL 200 MG TAB PO SCH (12:01)
[2018-01-21] MEDS: HEPARIN SODIUM,PORCINE/D5W PMX 25,000 UNIT in DEXTROSE/WATER 1 500ML.BAG IV SCH (15:05)
[2018-01-21] MEDS: SPIRONOLACTONE 25 MG TAB PO SCH (15:39)
--- NOTE | 2018-01-21 15:42 | CT ---
EXAMINATION TYPE: CT brain wo con DATE OF EXAM: 01/21/2018 COMPARISON: NONE HISTORY: Hypertension and headache. CT DLP: 1020.[address] of the brain was performed. The ventricles, basal cisterns and sulci overlying the cerebral convexities demonstrate mild enlargem ent. There is no evidence for intracranial hemorrhage or sulcal effacement. There is moderate decreased attenuation about the periventricular white matter and deep white matter of both cerebral hemispheres, compatible with chronic small vessel ischemia. Differential diagnosis d oes include demyelination. No mass effects are seen.No midline shift. Osseous calvarium is intact. If symptoms persist consider MRI. IMPRESSION: 1. Age related atrophic and chronic small vessel ischemic change without acute intracranial process s een at this time.
--- NOTE | 2018-01-21 15:48 | CONS ---
CONSULTATION Mr. Dailey is a 57-year-old obesely built gentleman who is seen for evaluation and management of blood pressure. Patient's medical records were reviewed. He is a 57- year-old gentleman who has a history of hypertension, diabetes, chronic sleep apnea, lower extremity edema and morbid obesity who was at the [facility] for lithotripsy. The patient was found to have a significantly elevated blood pressure. In spite of the multiple medications, his blood pressure remained elevated, so patient was brought to the emergency room here. This patient does take losartan, metoprolol and clonidine at home for his blood pressure. He says he did take his medications at home. The patient has a history of diabetes. The patient denies any history of angina. His physical activities are limited because of joint pain. There is no prior history of myocardial infarction. PAST MEDICAL HISTORY: 1. History of diabetes. 2. Hyperlipidemia. 3. Hypertension. 4. Prostate cancer. 5. Sleep apnea. 6. Left hip surgery. 7. Herniated disc. HOME MEDICATIONS: 1. Losartan 100 mg daily. 2. Lopressor 100 mg b.i.d. 3. Catapres 0.3 mg t.i.d. 4. Apresoline 100 mg t.i.d. 5. HydroDIURIL 25 mg daily. 6. Indocin. PHYSICAL EXAMINATION: The patient's initial blood pressure on admission was elevated. The patient's blood pressure now is 145/80 mmHg. Head/ENT examination is negative. Neck is supple. There is no increase in jugular venous pressure. Both the carotid pulses are felt. There is no bruit. Chest is symmetrical. HEART: The PMI is not felt. First and second heart sounds are normal. Lungs are clinically clear to auscultation and percussion. There is evidence of trace leg edema. EKG shows normal sinus rhythm with left ventricular hypertrophy and a strain pattern. Patient's troponins are 0.036, 0.036 and 0.044. FINAL IMPRESSION: This patient is admitted with uncontrolled hypertension. Further adjustment in the medications will be made. Patient did not have any chest pain suggestive of angina. Patient has borderline elevated troponin without any significant rise and fall. It is not suggestive of acute coronary syndrome. Echo and Doppler study will be done to assess the left ventricular systolic function. We will put the patient on Lipitor 20 mg daily in view of his history of diabetes as well as hypertension. MMODL / IJN: [id number] /
[2018-01-21 16:49] LABS: Glucose,Whole Blood 157 mg/dL (75-99)
[2018-01-21 17:30] LABS: Appearance,Urine Clear (Clear); Bilirubin,Urine Negative (Negative); Blood,Urine Moderate (Negative); Color,Urine Yellow; Glucose,Urine (UA) Negative (Negative); Ketones,Urine Negative (Negative); Leukocyte Esterase,Urine Trace (Negative); Mucus,Urine Rare /hpf; Nitrite,Urine Negative (Negative); PH, Urine 5.5 (5.0-8.0); Protein,Urine 2+ (Negative); RBC,Urine >182 /hpf (0-5); Specific Gravity,Urine 1.014 (1.001-1.035); Squamous Epithelial Cell,Urine <1 /hpf (0-4); Urobilinogen,Urine <2.0 mg/dL (<2.0); WBC,Urine 3 /hpf (0-5)
[2018-01-21 17:50] LABS: Amphetamine Screen,Urine Not Detected (NotDetected); Barbiturate Screen,Urine Not Detected (NotDetected); Benzodiazepines Screen,Urine Not Detected (NotDetected); Cocaine Screen,Urine Not Detected (NotDetected); Methadone Screen, Urine Not Detected (NotDetected); Opiate Screen,Urine Not Detected (NotDetected); Oxycodone Screen, Urine Not Detected (NotDetected); Phencyclidine Screen,Urine Not Detected (NotDetected); Tricyclic Antidepressant,Urine Not Detected (NotDetected); Urn Cannabinoid Scrn Not Detected (NotDetected)
[2018-01-21 19:05] LABS: Hemoglobin A1C 9.7 % (4.0-6.0)
[2018-01-21] MEDS: LORATADINE 10 MG TAB PO SCH (20:19)
[2018-01-21] MEDS: ATORVASTATIN 10 MG TAB PO SCH (20:19)
[2018-01-21 20:44] LABS: Glucose,Whole Blood 160 mg/dL (75-99)
--- NOTE | 2018-01-21 21:51 | PN ---
PROGRESS NOTE DATE OF SERVICE: 01/21/2018. INTERIM HISTORY: This 57-year-old gentleman who was admitted with hypertensive urgency has elevated troponin. Cardiology is following the patient closely. No chest pain, no palpitations, no fever. EXAM: Alert and oriented x3. Pulse is 70, blood pressure 170/90, respirations 18, temperature 97.5, pulse ox 98% on room air. HEENT: Conjunctivae normal. NECK: No JVD. CARDIOVASCULAR: S1 and S2. LUNGS: Breath sounds diminished in the bases. No rhonchi, no crackles. ABDOMEN: Soft, nontender. EXTREMITIES: Legs, no swelling. LABORATORY DATA: CBC noted. BMP also noted. Troponin 0.044. ASSESSMENT: 1. Hypertensive urgency on admission. 2. Elevated troponin of undetermined etiology, likely to be acute coronary syndrome, up to to 0.044. 3. History of urolithiasis. 4. Diabetes type 2. 5. History of degenerative joint disease. 6. Chronic lower extremity edema. 7. Morbid obesity. 8. Sleep apnea. 9. History of degenerative joint disease. RECOMMENDATIONS: Continue current management and symptomatic treatment. At this time we will monitor the patient closely with Cardiology. Guarded prognosis because of multiple complex medical issues. Further recommendations to follow. MMODL / IJN: [id number] /
--- NOTE | 2018-01-21 22:42 | CONS ---
CONSULTATION DATE OF CONSULTATION: 01/21/2018 CHIEF COMPLAINT: Dysarthria. HISTORY OF PRESENT ILLNESS: The patient is a pleasant 57-year-old male who is being evaluated by the neurology service per the request of Dr. Link for an episode of dysarthria. The patient was brought into [facility] Emergency Room with uncontrolled hypertension. He had initially been seen at his urologist's office for a scheduled lithotripsy. His blood pressure was found to be significantly elevated at 215/115. In the emergency room, he was given multiple IV medications and a clonidine patch. His blood pressure improved. In the emergency room, he was noticed to be having some slurred speech, although the patient denies having this at that point or at the time of my evaluation. His speech appears to be normal at this time. The patient does take aspirin 81 mg daily at home, but this had been held for his scheduled urology procedure. At the time of my evaluation, he denies having any lateralizing numbness or weakness. He was complaining of a headache earlier, but this has resolved. PAST MEDICAL HISTORY: 1. Obstructive sleep apnea. 2. Heart failure. 3. Diabetes. 4. Dyslipidemia. 5. Hypertension. 6. Arthritis. 7. Chronic low back pain. 8. Benign prostatic hypertrophy. 9. History of orthopedic surgeries. 10.Nephrolithiasis. 11.History of nasal surgery. SOCIAL HISTORY: He denies any tobacco, alcohol or drug use. FAMILY HISTORY: Positive for cancer. HOME MEDICATIONS: Reviewed in the chart. ALLERGIES: NO KNOWN DRUG ALLERGIES. REVIEW OF SYSTEMS: As mentioned above and otherwise negative. PHYSICAL EXAMINATION: Vital signs show a temperature of 97.5, pulse 70, respiration 18, blood pressure 177/94. GENERAL APPEARANCE: The patient is an obese male who appears to be in no acute distress. HEENT: Normocephalic, atraumatic. No facial asymmetry is seen. Extraocular muscles are intact. NECK: Supple with no masses felt. CARDIOVASCULAR: Regular rate and rhythm. ABDOMEN: Nontender, nondistended. Extremities showed edema in bilateral lower extremities with no clubbing seen. NEUROLOGICAL EXAMINATION: The patient is alert, aware and oriented x3. Speech and language are normal. Strength is full in all 4 extremities. Sensory exam was normal to light touch in all 4 extremities. No tremors or seizure-like activity is seen. No facial asymmetry is seen on cranial nerve testing. INVESTIGATIONS: CT scan of the brain showed no acute findings. There was generalized atrophy and small- vessel ischemic changes. His urinalysis showed greater than 182 WBCs with trace leukocyte esterase. His CBC was normal. His comprehensive metabolic profile was normal except for hyperglycemia at 203. His cardiac enzymes showed slightly elevated troponin at 0.044. His fasting lipid panel showed decreased HDL at 33 and slightly elevated triglycerides at 169. IMPRESSION: 1. Questionable dysarthria, resolved. 2. Uncontrolled hypertension. 3. Urinary tract infection. 4. Small vessel ischemic disease. RECOMMENDATIONS: The patient was felt to be having some dysarthria, as mentioned above, but the patient denies having those symptoms. If dysarthria did occur, this was transient and likely related to his hypertensive urgency. His blood pressure is better controlled at this time. Cardiology is following the patient. The patient's aspirin has been resumed. His earlier headache was likely due to his elevated blood pressure, as this has resolved as well. I do recommend antibiotic therapy for his urinary tract infection. No further neurological workup is needed. Thank you for allowing me to participate in the care of your patient. If you have any questions, please feel free to contact me. MMODL / IJN: [id number] /
[2018-01-22] MEDS: QUEtiapine 50 MG TAB PO PRN ×2 (00:07→22:17)
[2018-01-22] MEDS: ACETAMINOPHEN TAB 325 MG TAB PO PRN (04:00)
[2018-01-22 05:59] LABS: Glucose,Whole Blood 221 mg/dL (75-99)
[2018-01-22 06:32] LABS: Mean Platelet Volume 7.1; Platelet Count 192 k/uL (150-450)
[2018-01-22] MEDS: INSULIN ASPART 100 UNIT/ML 1 ML 10 ML VIAL SQ SCH ×4 (06:56→21:15)
[2018-01-22] MEDS: metFORMIN 500 MG TAB PO SCH ×2 (06:56→17:15)
[2018-01-22] MEDS: LOSARTAN 50 MG TAB PO SCH (09:15)
[2018-01-22] MEDS: hydrALAZINE HCL 50 MG TAB PO SCH ×3 (09:15→21:14)
[2018-01-22] MEDS: ASPIRIN 325 MG TAB PO SCH (09:15)
[2018-01-22] MEDS: cloNIDine HCL 0.1 MG TAB PO SCH ×3 (09:15→21:14)
[2018-01-22] MEDS: glipiZIDE 10 MG TAB PO SCH ×2 (09:15→21:14)
[2018-01-22] MEDS: GABAPENTIN 400 MG CAP PO SCH ×3 (09:15→21:14)
[2018-01-22] MEDS: CHLORTHALIDONE 25 MG TAB PO SCH (09:15)
[2018-01-22] MEDS: TAMSULOSIN 0.4 MG CAP.ER.24H PO SCH (09:16)
[2018-01-22] MEDS: METHOCARBAMOL 500 MG TAB PO SCH ×4 (09:16→21:14)
[2018-01-22] MEDS: SPIRONOLACTONE 25 MG TAB PO SCH (09:18)
[2018-01-22] MEDS: METOPROLOL TARTRATE 50 MG TAB PO SCH (09:18)
--- NOTE | 2018-01-22 10:44 | ECHOF ---
Referral Reason:n MEASUREMENTS -------- HEIGHT: 188.0 cm WEIGHT: 171.5 kg BP: 145/72 RVIDd: 2.6 cm (< 3.3) IVSd: 2.1 cm (0.6 - 1.1) LVIDd: 5.3 cm (3.9 - 5.3) LVPWd: 2.1 cm (0.6 - 1.1) IVSs: 2.6 cm LVIDs: 3.0 cm LVPWs: 2.7 cm RAP: 5.00 mmHg RVSP: 14.72 mmHg FINDINGS -------- Sinus rhythm. This was a technically difficult study with suboptimal views. The left ventricular size is normal. There is severe concentric left ventricular hypertrophy. Ove rall left ventricular systolic function is low-normal with, an EF between 50 - 55 %. The right ventricle is normal in size. The global wall thickness of the right ventricle is moderate ly enlarged. The left atrium was not well visualized. RA appears enlarged. 5ml of Lumason was utilized for enhancement of images. The aortic valve was not well visualized. The mitral valve leaflets are mildly thickened. There is trace to mild mitral regurgitation. Trace tricuspid regurgitation present. Right ventricular systolic pressure is normal at < 35 mmHg. There is no evidence of pulmonary hypertension. The pulmonic valve was not well visualized. The aortic root size is normal. The IVC is dilated with normal collapse. There is a small pericardial effusion is located near the right ventricle. CONCLUSIONS -------- 1. Sinus rhythm. 2. This was a technically difficult study with suboptimal views. 3. The left ventricular size is normal. 4. There is severe concentric left ventricular hypertrophy. 5. Overall left ventricular systolic function is low-normal with, an EF between 50 - 55 %. 6. The global wall thickness of the right ventricle is moderately enlarged. 7. The left atrium was not well visualized. 8. RA appears enlarged. 9. 5ml of Lumason was utilized for enhancement of images. 10. The aortic valve was not well visualized. 11. The mitral valve leaflets are mildly thickened. 12. There is trace to mild mitral regurgitation. 13. Trace tricuspid regurgitation present. 14. Right ventricular systolic pressure is normal at < 35 mmHg. 15. There is no evidence of pulmonary hypertension. 16. The pulmonic valve was not well visualized. 17. The aortic root size is normal. 18. The IVC is dilated with normal collapse. 19. There is a small pericardial effusion is located near the right ventricle. SERVICE DESK TECHNICIAN: Jonas Banegas RDCS
[2018-01-22 11:32] LABS: Glucose,Whole Blood 189 mg/dL (75-99)
[2018-01-22] MEDS: MODAFINIL 200 MG TAB PO SCH (13:07)
[2018-01-22 14:50] VITALS: BMI 47.8
[2018-01-22 16:48] LABS: Glucose,Whole Blood 121 mg/dL (75-99)
[2018-01-22] MEDS: CARVEDILOL 12.5 MG TAB PO SCH (17:15)
--- NOTE | 2018-01-22 18:04 | PN ---
PROGRESS NOTE DATE OF SERVICE: 01/22/2018. INTERVAL HISTORY: This 57-year-old gentleman was admitted with dysarthria also gait dysfunction also present on admission. Cardiology and neurology following the patient closely. No chest pain. No palpitations. No fever. PHYSICAL EXAM: Alert and oriented x3. Vitals are noted and stable. Cardiovascular: S1-S2. No S3, no S4. Respiratory: Breath sounds diminished in the bases. A few scattered rhonchi and crackles. ABDOMEN: Soft, nontender. Legs: No edema and no swelling. NERVOUS SYSTEM: Higher functions as mentioned earlier. Moves all four limbs. No focal deficits. Lymphatics: No lymph nodes palpable in the neck, axillae or groin. SKIN: No ulcer, rash, bleeding. LABS: At this time shows labs are noted. ASSESSMENT: 1. Hypertensive urgency on admission. 2. Elevated troponin of undetermined etiology, unlikely due to acute coronary syndrome up to 0.044. 3. Dysarthria, dizziness, possible transient ischemic attack. 4. Urolithiasis. 5. Diabetes type 2. 6. History of degenerative joint disease. 7. Chronic lower extremity edema. 8. Morbid obesity. 9. Sleep apnea. 10.History of degenerative joint disease. RECOMMENDATIONS AND DISCUSSION: Recommend to continue current medication, continue symptomatic treatment. Otherwise, at this time I would recommend closely follow with neurology and Cardiology. Guarded prognosis. Further recommendations to follow. MMODL / IJN: [id number] /
--- NOTE | 2018-01-22 18:13 | PN ---
PROGRESS NOTE This patient was admitted with uncontrolled hypertension. Patient is feeling better. His blood pressure is much better as compared to yesterday. Blood pressure is now 157/84 mmHg. First and second heart sounds are normal. Lungs are clinically clear to auscultation and percussion. At present we will continue the patient on current medications. Patient is advised to check his blood pressure at home, and he will be followed up in the office as outpatient for further adjustment of blood pressure medications. We will keep the patient for one more day. MMODL / IJN: [id number] /
[2018-01-22 20:42] LABS: Glucose,Whole Blood 237 mg/dL (75-99)
[2018-01-22] MEDS: LORATADINE 10 MG TAB PO SCH (21:14)
[2018-01-22] MEDS: ATORVASTATIN 10 MG TAB PO SCH (21:14)
[2018-01-22 22:43] VITALS: RESP 18
[2018-01-23 05:56] LABS: Glucose,Whole Blood 172 mg/dL (75-99)
[2018-01-23 06:08] LABS: Mean Platelet Volume 8.1; Platelet Count 194 k/uL (150-450)
[2018-01-23] MEDS: metFORMIN 500 MG TAB PO SCH (07:05)
[2018-01-23] MEDS: CARVEDILOL 12.5 MG TAB PO SCH (07:05)
[2018-01-23] MEDS: INSULIN ASPART 100 UNIT/ML 1 ML 10 ML VIAL SQ SCH ×2 (07:06→12:02)
[2018-01-23] MEDS: MODAFINIL 200 MG TAB PO SCH (07:57)
[2018-01-23] MEDS: cloNIDine HCL 0.1 MG TAB PO SCH (07:58)
[2018-01-23] MEDS: TAMSULOSIN 0.4 MG CAP.ER.24H PO SCH (07:58)
[2018-01-23] MEDS: glipiZIDE 10 MG TAB PO SCH (07:58)
[2018-01-23] MEDS: METHOCARBAMOL 500 MG TAB PO SCH ×2 (07:58→12:02)
[2018-01-23] MEDS: GABAPENTIN 400 MG CAP PO SCH (07:58)
[2018-01-23] MEDS: SPIRONOLACTONE 25 MG TAB PO SCH (07:58)
[2018-01-23] MEDS: ASPIRIN 325 MG TAB PO SCH (07:58)
[2018-01-23] MEDS: hydrALAZINE HCL 50 MG TAB PO SCH (07:58)
[2018-01-23] MEDS: CHLORTHALIDONE 25 MG TAB PO SCH (07:59)
[2018-01-23] MEDS: LOSARTAN 50 MG TAB PO SCH (07:59)
[2018-01-23 08:14] VITALS: TEMP 97.7
[2018-01-23 12:09] LABS: Glucose,Whole Blood 187 mg/dL (75-99)
[2018-01-23 12:18] VITALS: BP 143/84; PULSE 68
--- NOTE | 2018-01-23 14:12 | P.PN ---
Subjective Progress Note Date: 01/23/18 This is a 57-year-old obese sleep felt gentleman who is seen in consultation by Dr. reed king. He was admitted to the hospital with significantly elevated blood pressure. Adjustments were made in his medications, patient was seen and examined this morning, blood pressure 130/68 with a heart rate in the 60s, 97% on room air. Echocardiogram with Doppler study was performed which revealed an ejection fraction of 50-55%. Objective - Vital Signs Vital signs: Vital Signs Temp 97.7 F 01/23/18 12:16 Pulse 68 01/23/18 12:16 Resp 18 01/23/18 12:16 BP 143/84 01/23/18 12:16 Pulse Ox 96 01/23/18 12:16 Intake & Output 01/22/18 01/23/18 01/23/18 18:59 06:59 18:59 Intake Total 430 250 Output Total 800 300 Balance -370 -50 Weight 169.1 kg 167.6 kg Intake: Oral 430 100 Other 150 Output: Urine 800 300 Other: Voiding Method Toilet Toilet Toilet Urinal Urinal Urinal # Voids 1 - Exam PHYSICAL EXAMINATION: HEENT: Head is atraumatic, normocephalic. Pupils equal, round. Neck is supple. There is no elevated jugular venous pressure. HEART EXAMINATION: Heart S1, S2 normal. No murmur or gallop heard. CHEST EXAMINATION: Lungs are clear to auscultation and precussion. No chest wall tenderness is noted on palpation or with deep breathing. ABDOMEN: Soft, obese, nontender. Bowel sounds are heard. No organomegaly noted. EXTREMITIES: 2+ peripheral pulses with no evidence of peripheral edema and no calf tenderness noted. NEUROLOGIC patient is awake, alert and oriented -3. . - Labs CBC & Chem 7: 01/23/18 05:50 01/20/18 14:54 Labs: Abnormal Lab Results - Last 24 Hours (Table) 01/22/18 01/22/18 01/23/18 Range/Units 16:41 20:40 05:55 POC Glucose (mg/dL) 121 H 237 H 172 H (75-99) mg/dL 01/23/18 Range/Units 11:53 POC Glucose (mg/dL) 187 H (75-99) mg/dL Microbiology - Last 24 Hours (Table) 01/21/18 17:20 Urine Culture - Final Urine,Clean Catch Assessment and Plan Plan: Assessment and plan #1 hypertensive urgency #2 morbid obesity #3 sleep apnea Plan Cardiology's perspective, patient may be able to be discharged home today. We will make him a follow-up appointment in the office to see Dr. VC Meza post discharge. DNP note has been reviewed, I agree with a documented findings and plan of care. Patient was seen and examined.
--- NOTE | 2018-01-24 00:14 | DS ---
DISCHARGE SUMMARY DATE OF SERVICE: 01/23/2018 FINAL DIAGNOSES: 1. Hypertensive urgency on admission. 2. Elevated troponin of undetermined etiology, unlikely due to acute coronary syndrome. Troponin up to 0.044. 3. Dysarthria, dizziness, possible transient ischemic attack. 4. Urolithiasis. 5. Diabetes type 2. 6. History of degenerative joint disease. 7. Chronic lower extremity edema. DISCHARGE DISPOSITION: The patient will be discharged in stable condition with guarded prognosis. HISTORY OF PRESENT ILLNESS: This 57-year-old gentleman with a past medical history of multiple medical problems was admitted with multiple symptomatology as mentioned earlier. The patient was treated symptomatically and blood pressure monitored. Cardiology and Neurology saw the patient. CARDIOVASCULAR SYSTEM: S1 and S2. ABDOMEN: Soft. NERVOUS SYSTEM: No focal deficits. DISCHARGE ADVICE AND MEDICATIONS: 1. Diet is cardiac. 2. Activity limited until followup. 3. Follow up with Dr. Mcintyre in 2-3 days. 4. Follow up with Cardiology and Neurology as advised. MEDICATIONS ARE: 1. Ecotrin 81 mg p.o. daily. 2. Coreg 25 mg p.o. b.i.d. 3. Catapres 0.3 p.o. t.i.d. 4. Gabapentin 800 mg p.o. t.i.d. 5. Glucotrol XL 10 mg p.o. b.i.d.. 6. hydrallazine 100 mg p.o. t.i.d. 7. Hydrochlorothiazide 50 mg p.o. daily. 8. [place] 7.5 q.8h p.r.n. 9. Indocin 50 mg p.o. t.i.d. 10.levocetirizine 5 mg q.h.s. 11.Ativan 0.5 mg b.i.d. 12.Cozaar 100 mg p.o. daily. 13.Mevacor 40 mg q.h.s. 14.Glucophage 1000 mg b.i.d. 15.Robaxin 500 mg q.i.d. 16.provigil 200 mg daily. 17.Seroquel 250 mg q.h.s. p.r.n. 18.Aldactone 25 mg p.o. daily. 19.Flomax 0.4 daily. Once again, the patient will be discharged in stable with guarded prognosis. MMODL / IJN: [id number] / MTDNate
== END 2018-01-23 16:14 | disposition home or self-care (01) | DRG 305 ==
LOC: EC 14:32 → 6SEL 16:16 → OBSVTOIN 01-21 15:40
PROVIDERS: ADMIT Internal Medicine; ATTEND Internal Medicine
DX: I16.1 Hypertensive emergency (principal); Z68.42 Body mass index [BMI] 45.0-49.9, adult; N39.0 Urinary tract infection, site not specified; R77.8 Other specified abnormalities of plasma proteins; E11.9 Type 2 diabetes mellitus without complications; M15.9 Polyosteoarthritis, unspecified; E66.01 Morbid (severe) obesity due to excess calories; G47.33 Obstructive sleep apnea (adult) (pediatric); G89.29 Other chronic pain; N40.0 Benign prostatic hyperplasia without lower urinary tract symptoms; N20.0 Calculus of kidney; E78.5 Hyperlipidemia, unspecified; I50.9 Heart failure, unspecified; I11.0 Hypertensive heart disease with heart failure; F41.9 Anxiety disorder, unspecified; F32.9 Major depressive disorder, single episode, unspecified; R47.1 Dysarthria and anarthria; Z87.442 Personal history of urinary calculi; Z79.84 Long term (current) use of oral hypoglycemic drugs; Z79.82 Long term (current) use of aspirin; Z79.891 Long term (current) use of opiate analgesic; Z85.46 Personal history of malignant neoplasm of prostate; Z79.899 Other long term (current) drug therapy
CPT/HCPCS: 36415; 70450; 71045; 80053; 80061; 80306; 81001; 82550; 82553; 83036; 83735; 83880; 84484; 85025; 85049; 85610; 85730; 87086; 93005; 93306; 94760; 96365; 96375; 96376; 99285

== ENCOUNTER 2018-02-03 09:02 | Day surgery (SDC) | payer MEDICARE ==
[2018-01-30 11:35] VITALS: BMI 48.7
[~2018-02-03 09:02] MED LIST changes: -ACETAMINOPHEN TAB 500 MG TAB PO ONE; +DEXAMETHASONE SOD PHOSPHATE 10 MG/ML 1 ML VIAL IV ONE; -FAMOTIDINE 20 MG/2 ML VIAL IV PRN; -HYDROmorphone 1 MG/ML 1 ML SYRINGE IVP PRN; +LACTATED RINGERS 1,000 ML IV SCH; -MELOXICAM 7.5 MG TAB PO ONE; -MIDAZOLAM 2 MG/2 ML VIAL IV PRN; +MORPHINE SULFATE 4 MG/ML SYRINGE IV PRN; +Pre Op ABX Message 1 EACH MISC MISCELLANE ONE; -TRANEXAMIC ACID 1,000 MG in SODIUM CHLORIDE 0.9% 100 ML IVPB ONE; -ceFAZolin 3 GM in SODIUM CHLORIDE 0.9% 100 ML IVPB ONE
[2018-02-03 09:52] VITALS: RESP 16; TEMP 97.4
[2018-02-03 10:02] LABS: Glucose,Whole Blood 235 mg/dL (75-99)
[2018-02-03] MEDS ORDERED: INSULIN ASPART 100 UNIT/ML 1 ML 10 ML VIAL SQ ONE (10:12)
--- NOTE | 2018-02-03 10:37 | XR ---
Abdomen HISTORY: Preop left renal stones, double J ureteral catheter placement, left renal calculus Frontal view of the abdomen submitted on 3 images and correlated to prior abdomen 12/27/[address] fr om outside institution 12/20/2017 Double-J ureteral stent is present on the left. There are vascular calcifications suspected within th e pelvis. Patient is status post left hip arthroplasty. Degenerative disc changes in the visualized s pine are noted. Right hip shows osteoarthritic change. Overlying bowel gas may obscure detail. Air-fi lled loops of bowel suggest possible ileus. IMPRESSION: Possible underlying ileus, indwelling stent, ureteral calculus is not seen with certainty .
[2018-02-03] MEDS ORDERED: LIDOCAINE 1% INJ 10MG/ML (20 ML MDV) ONE (10:55)
[2018-02-03] MEDS ORDERED: fentaNYL (PF) 50 MCG/ML 2 ML AMP ONE (10:55)
[2018-02-03] MEDS ORDERED: GLYCOPYRROLATE 0.2 MG/ML 2 ML VIAL ONE (10:55)
[2018-02-03] MEDS ORDERED: PROPOFOL 10 MG/ML 20 ML VIAL IV ONE (10:55)
[2018-02-03] MEDS ORDERED: KETAMINE 10 MG/ML 20 ML VIAL ONE (10:55)
[2018-02-03] MEDS ORDERED: MIDAZOLAM 2 MG/2 ML VIAL ONE (10:55)
--- NOTE | 2018-02-03 11:32 | P.OP ---
Date of Procedure: 02/03/18 Preoperative Diagnosis: lt renal stone Postoperative Diagnosis: Left renal stone Procedure(s) Performed: For shockwave lithotripsy 2500 shocks at energy level IV Anesthesia: VARSHA HURTADO Surgeon: Hiren Bowser Pathology: none sent Condition: stable Disposition: PACU Indications for Procedure: The patient is a 57-year-old gentleman with a 6 mm UPJ stone treated with a double-J cath renal comes for shockwave lithotripsy Description of Procedure: Patient is brought to the operating suite. He is given IV sedation. The stone was seen at the coil of the double-J stent at the UPJ on the left side. 2500 shocks administered at energy level IV to fracture the stone. Then the procedure the patient awake and returned recovery in good condition. Tell procedure well be discharged home upon recovery. Cedric 1 week with a KUB the stone is gone the stent can be removed.
[2018-02-03 11:48] VITALS: PULSE 68
[2018-02-03 11:55] LABS: Glucose,Whole Blood 220 mg/dL (75-99)
[2018-02-03 12:10] VITALS: BP 139/77
== END 2018-02-03 12:38 | disposition home or self-care (01) ==
LOC: ORWHC2ENDO 09:02
PROVIDERS: ATTEND Urology
DX: N20.2 Calculus of kidney with calculus of ureter (principal); L03.90 Cellulitis, unspecified; E78.00 Pure hypercholesterolemia, unspecified; E66.01 Morbid (severe) obesity due to excess calories; Z68.42 Body mass index [BMI] 45.0-49.9, adult; L30.9 Dermatitis, unspecified; N40.1 Benign prostatic hyperplasia with lower urinary tract symptoms; N39.41 Urge incontinence; M54.30 Sciatica, unspecified side; I11.0 Hypertensive heart disease with heart failure; I50.9 Heart failure, unspecified; M54.2 Cervicalgia; M54.12 Radiculopathy, cervical region; G47.33 Obstructive sleep apnea (adult) (pediatric); M16.11 Unilateral primary osteoarthritis, right hip; F41.9 Anxiety disorder, unspecified; F32.9 Major depressive disorder, single episode, unspecified; E11.42 Type 2 diabetes mellitus with diabetic polyneuropathy; Z79.84 Long term (current) use of oral hypoglycemic drugs; Z79.899 Other long term (current) drug therapy; Z79.82 Long term (current) use of aspirin; Z96.642 Presence of left artificial hip joint
CPT/HCPCS: 74018; 50590; J2250; J1100; J2405; J2001; J3010; J2704

== ENCOUNTER → 2018-04-15 | Outpatient (CLI) | payer MEDICARE ==
--- NOTE | 2018-04-15 12:00 | XR ---
EXAMINATION TYPE: XR KUB DATE OF EXAM: 04/15/2018 COMPARISON: 02/03/2018 HISTORY: Left renal calculus TECHNIQUE: One view abdominal series FINDINGS: The osseous structures are intact. The bowel gas pattern is nonspecific. Gastric bubble somewhat pro minent. There is hypertrophic and degenerative change of the stomach. There is a left-sided ureteral stent. No sizable calcification seen overlying the course of the stent. Arthropathy of the right hip and postsurgical change left hip. Sclerosis involving the right SI joint suggestive of sacroiliitis. IMPRESSION: 1. Left-sided ureteral stent with no definite suspicious calcifications.
== END | disposition home or self-care (01) ==
LOC: RADXRMAIN 11:41
PROVIDERS: ATTEND Urology
DX: N20.1 Calculus of ureter (principal); Z96.0 Presence of urogenital implants
CPT/HCPCS: 74018

== ENCOUNTER → 2018-05-13 | Outpatient (CLI) | payer MEDICARE ==
--- NOTE | 2018-05-13 13:26 | XR ---
Abdomen HISTORY: Kidney stone Frontal view abdomen on 4 images correlated to prior abdomen 04/15/2018 Arthropathy again noted within the hips. Hypertrophic changes are noted in the visualized spine. Post op change noted to the left hip. There is a gas-distended stomach. Retained fecal debris is noted reema ecially in the right colon. Colon appears somewhat distended but may be magnified. There is no pneumo peritoneum evident. Lung bases not well seen. Double-J ureteral stent has been removed in the interva l. IMPRESSION: Correlate for fecal stasis, there may be colonic distention. Gas distended stomach.
== END | disposition home or self-care (01) ==
LOC: RADXRMAIN 09:45
PROVIDERS: ATTEND Urology
DX: R14.0 Abdominal distension (gaseous) (principal)
CPT/HCPCS: 74018

== ENCOUNTER 2023-02-19 15:54 | Emergency (ER) | payer MEDICARE ==
--- NOTE | 2023-02-19 17:53 | ED ---
General Adult HPI - General Chief complaint: Back Pain/Injury Stated complaint: back pain Time Seen by Provider: 02/19/23 17:28 Source: patient, RN notes reviewed Mode of arrival: wheelchair Limitations: no limitations - History of Present Illness Initial comments: 62-year-old male presents to the emergency department chief complaint of low back pain. Patient states that it started about 2.5 weeks ago and has progressively gotten worse. Patient states that he has been seeing a chiropractor which was initially working but is not anymore. He states the pain radiates down his right leg. He states that he has fallen because of this pain. He is needing to use a walker which he typically does not. He states that he's been taking 20 mg a Clarinda which has not been touching the pain. He denies loss of bowel or bladder function, saddle anesthesia, fever, chills. He states that he is a never smoker. - Related Data Home Medications Medication Instructions Recorded Confirmed Lovastatin [Mevacor] 40 mg PO HS 12/24/16 02/03/18 QUEtiapine [SEROquel] 50 mg PO HS PRN 12/24/16 02/03/18 cloNIDine HCL [Catapres] 0.3 mg PO TID 12/24/16 01/30/18 glipiZIDE XL [Glucotrol XL] 10 mg PO BID 12/24/16 02/03/18 hydrALAZINE HCL [Apresoline] 100 mg PO TID 12/24/16 01/30/18 hydroCHLOROthiazide 50 mg PO DAILY 12/24/16 02/03/18 metFORMIN HCL [Glucophage] 1,000 mg PO BID-W/MEALS 12/24/16 02/03/18 methocarbamoL [Robaxin] 500 mg PO QID 12/24/16 01/30/18 modafiniL [Provigil] 200 mg PO DAILY 12/24/16 02/03/18 Aspirin EC [Ecotrin Low Dose] 81 mg PO DAILY 12/20/17 01/30/18 Gabapentin 800 mg PO TID 12/20/17 01/30/18 HYDROcodone/APAP 7.5-325MG [Clarinda 1 tab PO Q8HR PRN 12/20/17 01/30/18 7.5-325] Indomethacin [Indocin] 50 mg PO TID 12/20/17 01/30/18 Levocetirizine Dihydrochloride 5 mg PO HS 12/20/17 02/03/18 [Xyzal] Previous Rx's Medication Instructions Recorded Tamsulosin [Flomax] 0.4 mg PO DAILY cap.er.24h 12/28/16 Losartan [Cozaar] 100 mg PO DAILY #30 tab 01/23/18 Spironolactone [Aldactone] 25 mg PO DAILY #30 tab 01/23/18 carvediloL [Coreg*] 25 mg PO BID-W/MEALS #60 tab 01/23/18 Lidocaine 5% Patch [Lidoderm 5% 1 patch TOPICAL DAILY #5 patch 02/19/23 Patch] methylPREDNISolone Dose Pack 4 mg PO DIRECTED #21 tab 02/19/23 [Medrol Dose Pack] Allergies Allergy/AdvReac Type Severity Reaction Status Date / Time No Known Allergies Allergy Verified 02/19/23 16:11 Review of Systems ROS Statement: Those systems with pertinent positive or pertinent negative responses have been documented in the HPI. ROS Other: All systems not noted in ROS Statement are negative. Past Medical History Past Medical History: Heart Failure, Diabetes Mellitus, Hyperlipidemia, Hypertension, Musculoskeletal Disorder, Osteoarthritis (OA), Prostate Disorder, Sleep Apnea/CPAP/BIPAP Additional Past Medical History / Comment(s): EDEMA LOWER EXTREMITIES., USES BIPAP, HERNIATED DISCS WITH BACK PAIN, BPH, kidney stones, recent admission for uncontrolled blood pressure History of Any Multi-Drug Resistant Organisms: None Reported Past Surgical History: Joint Replacement, Orthopedic Surgery Additional Past Surgical History / Comment(s): NASAL SURGERY, lt hip replaced, cystocopy w/ureteral stent on 12/21/17 Past Anesthesia/Blood Transfusion Reactions: No Reported Reaction Past Psychological History: Anxiety, Depression Smoking Status: Never smoker Past Alcohol Use History: Heavy Past Drug Use History: None Reported - Past Family History Mother Family Medical History: Cancer Father Family Medical History: Cancer General Exam Limitations: no limitations General appearance: alert, in no apparent distress Head exam: Present: atraumatic, normocephalic, normal inspection Eye exam: Present: normal appearance, PERRL, EOMI. Absent: scleral icterus, conjunctival injection, periorbital swelling ENT exam: Present: normal exam, mucous membranes moist Neck exam: Present: normal inspection, full ROM. Absent: tenderness, meningismus, lymphadenopathy Respiratory exam: Present: normal lung sounds bilaterally. Absent: respiratory distress, wheezes, rales, rhonchi, stridor Cardiovascular Exam: Present: regular rate, normal rhythm, normal heart sounds. Absent: systolic murmur, diastolic murmur, rubs, gallop, clicks GI/Abdominal exam: Present: soft, normal bowel sounds. Absent: distended, tenderness, guarding, rebound, rigid Extremities exam: Present: normal inspection, full ROM, normal capillary refill. Absent: tenderness, pedal edema, joint swelling, calf tenderness Back exam: Present: tenderness, vertebral tenderness (Lumbar). Absent: CVA tenderness (R), CVA tenderness (L), muscle spasm, paraspinal tenderness Neurological exam: Present: alert, oriented X3 Psychiatric exam: Present: normal affect, normal mood Skin exam: Present: warm, dry, intact, normal color. Absent: rash Course Vital Signs 02/19/23 02/19/23 16:08 19:52 Temperature 97.8 F 98.1 F Pulse Rate 70 73 Respiratory 20 19 Rate Blood Pressure 179/76 127/68 O2 Sat by Pulse 99 94 L Oximetry Medical Decision Making - Medical Decision Making Was pt. sent in by a medical professional or institution (, PA, ETHICS MANAGER, urgent care, hospital, or custodial...) When possible be specific @ -No Did you speak to anyone other than the patient for history (EMS, parent, family, police, friend...)? What history was obtained from this source @ -No Did you review nursing and triage notes (agree or disagree)? Why? @ -I reviewed and agree with nursing and triage notes Were old charts reviewed (outside hosp., previous admission, EMS record, old EKG, old radiological studies, urgent care reports/EKG's, custodial records)? Report findings @ -No old charts were reviewed Differential Diagnosis (chest pain, altered mental status, abdominal pain women, abdominal pain men, vaginal bleeding, weakness, fever, dyspnea, syncope, headache, dizziness, GI bleed, back pain, seizure, CVA, palpatations, mental health, musculoskeletal)? @ -Differential Musculoskeletal Muscular strain, contusion, ligament sprain, fracture, arthritis, septic arthritis, bursitis, cellulitis, muscle spasm, nerve compression, DVT, arterial occlusion, herpes zoster, electrolyte abnormality, tumor.... This is not meant to be in all inclusive list EKG interpreted by me (3pts min.). @ -None X-rays interpreted by me (1pt min.). @ -X-ray lumbar spine showed no acute fracture, moderate multilevel disc degeneration, findings suggestive of Baastrup's disease CT interpreted by me (1pt min.). @ -None done U/S interpreted by me (1pt. min.). @ -None done What testing was considered but not performed or refused? (CT, X-rays, U/S, labs)? Why? @ -None What meds were considered but not given or refused? Why? @ -None Did you discuss the management of the patient with other professionals (professionals i.e. , PA, ETHICS MANAGER, lab, RT, psych nurse, psychosocial rehabilitation counselor, toaster element repairer, teacher, police officer, comp field case manager)? Give summary @ -No Was smoking cessation discussed for >3mins.? @ -No Was critical care preformed (if so, how long)? @ -No Were there social determinants of health that impacted care today? How? (Homelessness, low income, unemployed, alcoholism, drug addiction, transportation, low edu. Level, literacy, decrease access to med. care, shelter, rehab)? @ -No Was there de-escalation of care discussed even if they declined (Discuss DNR or withdrawal of care, Hospice)? DNR status @ -No What co-morbidities impacted this encounter? (DM, HTN, Smoking, COPD, CAD, Cancer, CVA, ARF, Chemo, Hep., AIDS, mental health diagnosis, sleep apnea, morbid obesity)? @ -None Was patient admitted / discharged? Hospital course, mention meds given and route, prescriptions, significant lab abnormalities, going to OR and other pertinent info. @ -Discharged. Patient presented to emergency department chief complaint of low back pain 2.5 weeks. Patient states he has been taking Clarinda for the pain which has not been helping. He states that the pain radiates down his right leg and is worse when he walks. Patient is not having any red flag symptoms at this time including fever, chills, saddle anesthesia, loss of bowel or bladder function, urinary retention. X-ray of the lumbar spine was obtained which showed no acute fracture, moderate disc degeneration. Patient was given IM Toradol and a lidocaine patch which he states significantly helped his pain. He states that he has an appointment with orthopedics coming up, advised him to keep this appointment. Prescription was sent for a Medrol Dosepak to the patient's pharmacy. Patient advised not to take NSAIDs while on the steroids. Patient advised follow-up his primary care provider. Patient discharged in stable condition. Case discussed my attending, Dr. Zhao. Undiagnosed new problem with uncertain prognosis? @ -No Drug Therapy requiring intensive monitoring for toxicity (Heparin, Nitro, Insulin, Cardizem)? @ -No Were any procedures done? @ -No Diagnosis/symptom? @ -Low-back pain Acute, or Chronic, or Acute on Chronic? @ -Acute Uncomplicated (without systemic symptoms) or Complicated (systemic symptoms)? @ -Uncomplicated Side effects of treatment? @ -No Exacerbation, Progression, or Severe Exacerbation? @ -No Poses a threat to life or bodily function? How? (Chest pain, [place], [place], pneumonia, PE, COPD, DKA, ARF, appy, cholecystitis, CVA, Diverticulitis, Homicidal, Suicidal, threat to staff... and all critical care pts) @ -No Disposition Clinical Impression: Sciatica Disposition: HOME SELF-CARE Condition: Stable Instructions (If sedation given, give patient instructions): Acute Low Back Pain (ED) Additional Instructions: Please return to the emergency department for new or worsening symptoms. Prescriptions: Lidocaine 5% Patch [Lidoderm 5% Patch] 1 patch TOPICAL DAILY #5 patch methylPREDNISolone Dose Pack [Medrol Dose Pack] 4 mg PO DIRECTED #21 tab Is patient prescribed a controlled substance at d/c from ED?: No Referrals: None,Stated [REFERRING] - 1-2 days Time of Disposition: 19:50
--- NOTE | 2023-02-19 18:36 | XR ---
EXAMINATION TYPE: XR lumbar spine 2 or 3V DATE OF EXAM: 02/19/2023 6:24 PM INDICATION: Patient age:Male; 62 years old; Reason for study: back pain; COMPARISON: 11/25/2012 TECHNIQUE: Frontal, lateral and coned in L5-S1 lateral views of the spine. FINDINGS: No evidence of any acute osseous pathology. No evidence of loss of vertebral body height i s seen. There is normal alignment of the lumbar vertebral bodies. Mild scattered disc space narrowing . Multilevel marginal osteophyte formation throughout the visualized spine. There is facet joint arth ropathy throughout the spine. Scattered at least mild neural foraminal stenosis which is worse in the lower lumbar spine. There is pseudoarthrosis of the spinous processes throughout the spine. IMPRESSION: 1. No acute fracture. 2. Moderate multilevel disc degeneration. 3. Findings suggestive of Baastrup's disease.
[2023-02-19] MEDS ORDERED: KETOROLAC 15 MG/ML 1 ML VIAL IM STA (18:45)
[2023-02-19] MEDS ORDERED: LIDOCAINE 5% PATCH TOPICAL STA (18:45)
[2023-02-19 19:52] VITALS: BP 127/68; PULSE 73; RESP 19; TEMP 98.1
== END 2023-02-19 20:00 | disposition home or self-care (01) ==
LOC: EC 15:54
DX: M54.30 Sciatica, unspecified side (principal); M51.36 Other intervertebral disc degeneration, lumbar region; E78.5 Hyperlipidemia, unspecified; I11.0 Hypertensive heart disease with heart failure; I50.9 Heart failure, unspecified; E11.9 Type 2 diabetes mellitus without complications; F41.9 Anxiety disorder, unspecified; F32.A Depression, unspecified; Z79.82 Long term (current) use of aspirin; Z79.84 Long term (current) use of oral hypoglycemic drugs; Z79.899 Other long term (current) drug therapy
CPT/HCPCS: 72100; 99283; 96372; J1885

== ENCOUNTER → 2023-04-10 | Outpatient (CLI) | payer MEDICARE ==
--- NOTE | 2023-04-11 00:05 | MR ---
EXAMINATION TYPE: MR lumbar spine wo con DATE OF EXAM: 04/10/2023 COMPARISON: None HISTORY: Low back pain, pain into right leg, numbness down left leg CONTRAST: 0 mL intravenous Gadavist. TECHNIQUE: Multiplanar, multisequence images of the lumbar spine were acquired. FINDINGS: L5-S1: Broad-based disc bulge is present with moderate anterior thecal sac compression. Facet hypertr ophy is present. Some ligamentum flavum laxity is present on the left. Left neural foramen is moderat e narrowing. L4-L5: No significant disc bulge or disc herniation. No spinal canal stenosis. There is mild right foraminal narrowing. L3-L4: No significant disc bulge or disc herniation. No spinal canal stenosis. No foraminal stenosi s. Neural foramen are patent.. L2-L3: There is a large right paracentral disc herniation with moderate anterior thecal sac compressi on. Exiting nerve root likely nerve root compression and displacement on the right. No spinal canal stenosis. No foraminal stenosis. L1-L2: No significant disc bulge or disc herniation. No spinal canal stenosis. T12-L1: No significant disc bulge or disc herniation. No spinal canal stenosis. No foraminal stenos is. IMPRESSION: 1. Large right paracentral disc herniation L2-3. Correlate with right L3 radicular symptoms. 2. Broad-based disc bulge L5-S1 moderate anterior thecal sac compression correlate with the left S1 r adicular symptoms from foraminal stenosis.
== END | disposition home or self-care (01) ==
LOC: RADMRIMAIN 17:10
PROVIDERS: ATTEND Orthopaedic Surgery Orthopaedic Surgery of the Spine
DX: M51.17 Intervertebral disc disorders with radiculopathy, lumbosacral region (principal); M47.27 Other spondylosis with radiculopathy, lumbosacral region; M99.73 Connective tissue and disc stenosis of intervertebral foramina of lumbar region
CPT/HCPCS: 72148